=== PATIENT | female | born 1955 | race Caucasian/White ===

== ENCOUNTER 2021-10-28 06:52 | Day surgery (SDC) | payer MEDICARE, OTHER ==
[~2021-10-28] VITALS: Ht 165.1 cm; Wt 122.5 kg
[~2021-10-28 06:52] MED LIST: SODIUM CHLORIDE 0.9% 1,000 ML IV ONE
[2021-10-28] MEDS ORDERED: LIDOCAINE 4% 50 ML SOLUTION TP ONE (06:53)
[2021-10-28] MEDS ORDERED: SODIUM CHLORIDE 0.9% 1,000 ML ONE (06:57)
[2021-10-28 07:14] LABS: COVID AG,FIA SOURCE NASAL SWAB
[2021-10-28] MEDS ORDERED: ARIP15TA27 PO (07:46)
[2021-10-28] MEDS ORDERED: LISI-892 PO (07:46)
[2021-10-28] MEDS ORDERED: OMEP-99 PO (07:46)
[2021-10-28] MEDS ORDERED: GLIM2 PO (07:46)
[2021-10-28] MEDS ORDERED: VENL-193 PO (07:46)
[2021-10-28] MEDS ORDERED: IBUP-2071 PO (07:58)
[2021-10-28] MEDS ORDERED: DOCU-385 PO (07:58)
[2021-10-28] MEDS ORDERED: MIRT30 PO (07:58)
[2021-10-28] MEDS ORDERED: BUDE10.7 IH (07:58)
[2021-10-28] MEDS ORDERED: TRAM50TA4 PO (07:58)
[2021-10-28] MEDS ORDERED: MONT-35 PO (07:58)
[2021-10-28] MEDS ORDERED: ROPI1TAB46 PO (07:58)
[2021-10-28] MEDS ORDERED: LORA10TA7 PO (07:58)
[2021-10-28] MEDS ORDERED: METO25 PO (08:08)
[2021-10-28] MEDS ORDERED: APIX5TAB PO (08:08)
[2021-10-28] MEDS ORDERED: METR250 PO (08:16)
[2021-10-28] MEDS ORDERED: ALBU8HFA IH (08:18)
== END 2021-10-28 08:35 | disposition still patient (30) ==
LOC: SURGERY 06:52
PROVIDERS: ATTEND Internal Medicine Critical Care Medicine
DX: R05.3 Chronic cough (principal); Z53.8 Procedure and treatment not carried out for other reasons; Z79.899 Other long term (current) drug therapy; I48.91 Unspecified atrial fibrillation; Z90.49 Acquired absence of other specified parts of digestive tract; Z88.7 Allergy status to serum and vaccine; Z20.822 Contact with and (suspected) exposure to COVID-19
CPT/HCPCS: 87426; 93005; C9803; J7030

== ENCOUNTER 2021-10-28 08:35 | Emergency (ER) | payer MEDICARE, OTHER ==
[~2021-10-28] VITALS: Ht 165.1 cm; Wt 122.5 kg
[~2021-10-28 08:35] MED LIST changes: +ALBU8HFA IH; +APIX5TAB PO; +ARIP15TA27 PO; +BUDE10.7 IH; +DOCU-385 PO; +GLIM2 PO; +IBUP-2071 PO; +LISI-892 PO; +LORA10TA7 PO; +METO25 PO; +METR250 PO; +MIRT30 PO; +MONT-35 PO; +OMEP-99 PO; +ROPI1TAB46 PO; -SODIUM CHLORIDE 0.9% 1,000 ML IV ONE; +TRAM50TA4 PO; +VENL-193 PO
[2021-10-28 09:09] LABS: BASOPHILS % (AUTO) 1.2 % (0.0-2.0); EOSINOPHILS % (AUTO) 2.2 % (1.0-6.0); HEMATOCRIT 41.1 % (36-46); HEMOGLOBIN 13.2 g/dL (12.0-16.0); LYMPHOCYTES # (AUTO) 1.9 K/uL (1.0-4.8); LYMPHOCYTES % (AUTO) 23.1 % (22.0-44.0); MEAN CORPUSCULAR HEMOGLOBIN 29.3 pg (26.0-34.0); MEAN CORPUSCULAR HGB CONC 32.2 G/dL (31.0-37.0); MEAN CORPUSCULAR VOLUME 91 fL (80-100); MONOCYTES # (AUTO) 0.8 K/uL (0.1-1.0); MONOCYTES % (AUTO) 9.9 % (2.0-9.0); NEUTROPHILS # (AUTO) 5.1 K/uL (1.8-7.7); NEUTROPHILS % (AUTO) 63.6 % (40.0-70.0); PLATELET COUNT (AUTO) 237 K/uL (150-450); RED BLOOD CELL COUNT(AUTO) 4.51 MIL/uL (4.00-5.20); RED CELL DISTRIBUTION WIDTH 14.5 % (11.5-14.5)
[2021-10-28] MEDS ORDERED: SODIUM CHLORIDE 0.9% 1,000 ML IV ONE (09:15)
[2021-10-28 09:20] LABS: CALCIUM, TOTAL 8.8 mg/dL (8.8-10.5); CREATININE 1.18 mg/dL (0.60-1.30); POTASSIUM 3.9 mmol/L (3.5-5.1)
[2021-10-28 09:27] LABS: ALBUMIN 3.2 g/dL (3.4-5.0); BILIRUBIN,TOTAL 0.3 mg/dL (0.1-1.0); TOTAL PROTEIN, SERUM 6.1 g/dL (6.4-8.2)
[2021-10-28 09:39] LABS: D-DIMER 1.52 mg/L FEU (0.00-0.50); PROTHROMBIN TIME 10.4 SEC (9.4-11.6)
[2021-10-28] MEDS ORDERED: SODIUM CHLORIDE 0.9% 100 ML ONE (09:57)
[2021-10-28] MEDS ORDERED: IOHEXOL 350 MG/ML 75 ML VIAL ONE (09:58)
[2021-10-28 11:20] LABS: COVID AG,FIA SOURCE NASAL SWAB
[2021-10-28 11:23] VITALS: BP 123/74
[2021-10-28 11:26] LABS: GLUCOMETER DEV NAME(LOC) ERT.5; GLUCOSE,POINT OF CARE 87 MG/DL (70-110)
[2021-10-28 11:41] LABS: INFLUENZA TYPE A NEGATIVE FOR TYPE A (NEGATIVE); INFLUENZA TYPE B NEGATIVE FOR TYPE B (NEGATIVE)
== END 2021-10-28 11:30 | disposition left against medical advice (07) ==
LOC: EMS 08:35
DX: R00.0 Tachycardia, unspecified (principal); Z20.822 Contact with and (suspected) exposure to COVID-19; F10.20 Alcohol dependence, uncomplicated; F17.210 Nicotine dependence, cigarettes, uncomplicated; F41.9 Anxiety disorder, unspecified; E11.9 Type 2 diabetes mellitus without complications; M79.7 Fibromyalgia; Z86.79 Personal history of other diseases of the circulatory system
CPT/HCPCS: 36415; 71045; 71275; 80053; 82962; 83880; 84484; 85025; 85379; 85610; 85730; 87426; 87804; 93005; 96360; 99285; J7050; Q9967

== ENCOUNTER 2021-11-04 12:18 | Inpatient (IN) | payer MEDICARE, OTHER ==
[~2021-11-04] VITALS: Ht 162.6 cm; Wt 127.5 kg
[2021-11-04 12:36] LABS: GLUCOMETER DEV NAME(LOC) ERT.5; GLUCOSE,POINT OF CARE 147 MG/DL (70-110)
[2021-11-04] MEDS ORDERED: IPRATROPIUM BROMIDE 0.5 MG/2.5 ML NEB SOLUTION NEB ONE (12:45)
[2021-11-04] MEDS ORDERED: SODIUM CHLORIDE 0.9% 1,000 ML IV ONE (12:45)
[2021-11-04] MEDS ORDERED: ALBUTEROL SULFATE 2.5 MG/0.5 ML NEB SOLUTION NEB ONE (12:45)
[2021-11-04] MEDS ORDERED: DILTIAZEM HCL 5 MG/ML 5 ML VIAL IVP ONE ×3 (13:00→18:15)
[2021-11-04 13:12] LABS: BASOPHILS % (AUTO) 1.3 % (0.0-2.0); EOSINOPHILS % (AUTO) 0.5 % (1.0-6.0); HEMATOCRIT 42.9 % (36-46); HEMOGLOBIN 13.9 g/dL (12.0-16.0); LYMPHOCYTES # (AUTO) 1.6 K/uL (1.0-4.8); LYMPHOCYTES % (AUTO) 22.1 % (22.0-44.0); MEAN CORPUSCULAR HEMOGLOBIN 29.3 pg (26.0-34.0); MEAN CORPUSCULAR HGB CONC 32.5 G/dL (31.0-37.0); MEAN CORPUSCULAR VOLUME 90 fL (80-100); MONOCYTES # (AUTO) 0.5 K/uL (0.1-1.0); MONOCYTES % (AUTO) 7.3 % (2.0-9.0); NEUTROPHILS # (AUTO) 5.1 K/uL (1.8-7.7); NEUTROPHILS % (AUTO) 68.8 % (40.0-70.0); PLATELET COUNT (AUTO) 251 K/uL (150-450); RED BLOOD CELL COUNT(AUTO) 4.76 MIL/uL (4.00-5.20); RED CELL DISTRIBUTION WIDTH 14.5 % (11.5-14.5)
[2021-11-04 13:23] LABS: ANION GAP 15 mmol/L (8-16); CARBON DIOXIDE 19 mmol/L (22-29); CHLORIDE 107 mmol/L (98-107); CREATININE 0.84 mg/dL (0.60-1.30); GLUCOSE,RANDOM 168 mg/dL (70-110); POTASSIUM 3.6 mmol/L (3.5-5.1); SODIUM SERUM 141 mmol/L (136-145); UREA NITROGEN, BLOOD 6 mg/dL (7-18)
[2021-11-04 13:24] LABS: GLOMERULAR FILTR. RATE CALC > 60 mL/min (>60)
[2021-11-04 13:26] LABS: COVID AG,FIA SOURCE NASOPHARYNGEAL
[2021-11-04 13:28] LABS: ALANINE AMINOTRANSFERASE 29 U/L (12-78); ALBUMIN 3.1 g/dL (3.4-5.0); ALKALINE PHOSPHATASE 108 U/L (46-116); ASPARTATE AMINOTRANSFERASE 19 U/L (15-37); BILIRUBIN,TOTAL 0.3 mg/dL (0.1-1.0); CREATINE KINASE, TOTAL ONLY 42 U/L (26-192); TOTAL PROTEIN, SERUM 6.3 g/dL (6.4-8.2)
[2021-11-04 13:43] LABS: B-TYPE NATRIURETIC PEPTIDE 707 pg/mL (0-100)
[2021-11-04 13:55] LABS: THYROID STIMULATING HORMONE 1.31 uIU/mL (0.36-3.74)
[2021-11-04 13:57] LABS: INFLUENZA TYPE A NEGATIVE FOR TYPE A (NEGATIVE); INFLUENZA TYPE B NEGATIVE FOR TYPE B (NEGATIVE)
[2021-11-04] MEDS ORDERED: ACETAMINOPHEN 325 MG TABLET PO PRN (15:00)
[2021-11-04] MEDS ORDERED: ONDANSETRON HCL 4 MG/2 ML VIAL IVP PRN (15:00)
[2021-11-04] MEDS ORDERED: 0.9% SODIUM CHLORIDE 10 ML SYRINGE IVP PRN (15:00)
[2021-11-04 17:46] VITALS: BP 122/74
[2021-11-04] MEDS ORDERED: PNEUMOCOCCAL VACCINE POLYVALENT 0.5 ML VIAL [PPSV23] IM. ONE (18:30)
[2021-11-04 19:57] VITALS: BP 123/84
[2021-11-04] MEDS: DILTIAZEM HCL 125 MG in DEXTROSE 5%-WATER 100 ML IV SCH (20:21)
[2021-11-04] MEDS: APIXABAN 5 MG TABLET PO SCH (20:22)
[2021-11-04] MEDS: ROPINIRole HCL 1 MG TABLET PO SCH (20:22)
[2021-11-04] MEDS: TraMADol HCL 50 MG TABLET PO PRN (20:22)
[2021-11-04] MEDS: MetroNIDAZOLE 250 MG TABLET PO SCH (20:22)
[2021-11-04] MEDS ORDERED: [UNRECOGNIZED DRUG - OTHER] IH SCH (21:00)
[2021-11-04 23:03] VITALS: BP 117/71
[2021-11-05] MEDS: TraMADol HCL 50 MG TABLET PO PRN ×3 (05:32→21:44)
[2021-11-05 05:34] VITALS: BP 115/57
[2021-11-05 05:57] LABS: GLUCOMETER DEV NAME(LOC) 5S.1B; GLUCOSE,POINT OF CARE 139 MG/DL (70-110)
[2021-11-05 06:06] LABS: BASOPHILS % (AUTO) 1.2 % (0.0-2.0); EOSINOPHILS % (AUTO) 1.8 % (1.0-6.0); HEMATOCRIT 40.2 % (36-46); HEMOGLOBIN 13.1 g/dL (12.0-16.0); LYMPHOCYTES # (AUTO) 2.3 K/uL (1.0-4.8); LYMPHOCYTES % (AUTO) 27.9 % (22.0-44.0); MEAN CORPUSCULAR HEMOGLOBIN 29.3 pg (26.0-34.0); MEAN CORPUSCULAR HGB CONC 32.5 G/dL (31.0-37.0); MEAN CORPUSCULAR VOLUME 90 fL (80-100); MONOCYTES # (AUTO) 0.7 K/uL (0.1-1.0); MONOCYTES % (AUTO) 8.5 % (2.0-9.0); NEUTROPHILS # (AUTO) 5.1 K/uL (1.8-7.7); NEUTROPHILS % (AUTO) 60.6 % (40.0-70.0); PLATELET COUNT (AUTO) 251 K/uL (150-450); RED BLOOD CELL COUNT(AUTO) 4.47 MIL/uL (4.00-5.20); RED CELL DISTRIBUTION WIDTH 14.8 % (11.5-14.5)
[2021-11-05 06:21] LABS: ALANINE AMINOTRANSFERASE 24 U/L (12-78); ALBUMIN 2.9 g/dL (3.4-5.0); ALKALINE PHOSPHATASE 101 U/L (46-116); ANION GAP 10 mmol/L (8-16); ASPARTATE AMINOTRANSFERASE 24 U/L (15-37); BILIRUBIN,TOTAL 0.4 mg/dL (0.1-1.0); CALCIUM, TOTAL 8.7 mg/dL (8.8-10.5); CARBON DIOXIDE 21 mmol/L (22-29); CHLORIDE 106 mmol/L (98-107); CREATININE 0.81 mg/dL (0.60-1.30); GLUCOSE,RANDOM 144 mg/dL (70-110); POTASSIUM 4.1 mmol/L (3.5-5.1); SODIUM SERUM 137 mmol/L (136-145); TOTAL PROTEIN, SERUM 6.2 g/dL (6.4-8.2); UREA NITROGEN, BLOOD 7 mg/dL (7-18)
[2021-11-05 06:25] LABS: GLOMERULAR FILTR. RATE CALC > 60 mL/min (>60)
[2021-11-05 08:27] VITALS: BP 146/97
[2021-11-05] MEDS: ARIPiprazole 15 MG TABLET PO SCH (09:20)
[2021-11-05] MEDS: VENLAFAXINE HCL 50 MG TABLET PO SCH (09:20)
[2021-11-05] MEDS: GLIMEPIRIDE 2 MG TABLET PO SCH (09:20)
[2021-11-05] MEDS: OMEPRAZOLE 20 MG CAPSULE PO SCH (09:21)
[2021-11-05] MEDS: MONTELUKAST SODIUM 10 MG TABLET PO SCH (09:21)
[2021-11-05] MEDS: LORATADINE 10 MG TABLET PO SCH (09:21)
[2021-11-05] MEDS: MIRTAZAPINE 30 MG TABLET PO SCH (09:21)
[2021-11-05] MEDS: MetroNIDAZOLE 250 MG TABLET PO SCH ×3 (09:21→20:45)
[2021-11-05] MEDS: ROPINIRole HCL 1 MG TABLET PO SCH ×2 (09:21→20:44)
[2021-11-05] MEDS: DOCUSATE SODIUM 100 MG CAPSULE PO SCH (09:23)
[2021-11-05] MEDS: APIXABAN 5 MG TABLET PO SCH ×2 (09:28→20:45)
[2021-11-05] MEDS: DILTIAZEM HCL 125 MG in DEXTROSE 5%-WATER 100 ML IV SCH ×2 (09:29→21:36)
[2021-11-05] MEDS: METOPROLOL TARTRATE 25 MG TABLET PO SCH ×2 (10:54→20:46)
[2021-11-05 11:01] VITALS: BP 145/95
[2021-11-05] MEDS ORDERED: FUROSEMIDE 20 MG/2 ML VIAL IVP ONE (11:30)
[2021-11-05 12:16] LABS: GLUCOMETER DEV NAME(LOC) 5S.2B; GLUCOSE,POINT OF CARE 141 MG/DL (70-110)
[2021-11-05] MEDS ORDERED: MethylPREDNISolone SOD SUCC 125 MG/2 ML VIAL IVP ONE (13:00)
[2021-11-05] MEDS ORDERED: ALBUTEROL SULFATE 2.5 MG/0.5 ML NEB SOLUTION NEB ONE (13:00)
[2021-11-05 16:44] VITALS: BP 98/67
[2021-11-05 18:07] LABS: GLUCOMETER DEV NAME(LOC) 5S.1B; GLUCOSE,POINT OF CARE 162 MG/DL (70-110)
[2021-11-05 20:35] VITALS: BP 132/59
[2021-11-05] MEDS: HydrOXYzine HCL 25 MG TABLET PO PRN (20:46)
[2021-11-06 00:22] VITALS: BP 119/60
[2021-11-06] MEDS ORDERED: MELATONIN 3 MG TABLET PO ONE (00:30)
[2021-11-06 04:39] VITALS: BP 98/50
[2021-11-06] MEDS ORDERED: MIDAZOLAM HCL 2 MG/2 ML VIAL ONE (07:25)
[2021-11-06] MEDS ORDERED: FentaNYL CITRATE PF 100 MCG/2 ML VIAL ONE (07:25)
[2021-11-06] MEDS ORDERED: LIDOCAINE 2% VISCOUS 15 ML SOLUTION UDCUP ONE (07:26)
[2021-11-06 07:42] VITALS: BP 138/90
[2021-11-06] MEDS ORDERED: PHENYLEPHRINE HCL 10 MG/ML 5 ML VIAL IVP ONE (08:00)
[2021-11-06] MEDS ORDERED: SODIUM CHLORIDE 0.9% 1,000 ML ONE (08:00)
[2021-11-06] MEDS ORDERED: SODIUM CHLORIDE 0.9% IV ONE (08:15)
[2021-11-06] MEDS ORDERED: PHENYLEPHRINE HCL IV ONE (08:15)
[2021-11-06] MEDS ORDERED: FUROSEMIDE 40 MG/4 ML VIAL ONE (08:25)
[2021-11-06 08:51] LABS: GLUCOMETER DEV NAME(LOC) 5S.1B; GLUCOSE,POINT OF CARE 181 MG/DL (70-110)
[2021-11-06] MEDS: OMEPRAZOLE 20 MG CAPSULE PO SCH (10:03)
[2021-11-06] MEDS: ARIPiprazole 15 MG TABLET PO SCH (10:04)
[2021-11-06] MEDS: GLIMEPIRIDE 2 MG TABLET PO SCH (10:04)
[2021-11-06] MEDS: APIXABAN 5 MG TABLET PO SCH ×2 (10:04→20:13)
[2021-11-06] MEDS: VENLAFAXINE HCL 50 MG TABLET PO SCH (10:04)
[2021-11-06] MEDS: ROPINIRole HCL 1 MG TABLET PO SCH ×2 (10:04→20:13)
[2021-11-06] MEDS: DOCUSATE SODIUM 100 MG CAPSULE PO SCH (10:05)
[2021-11-06] MEDS: MONTELUKAST SODIUM 10 MG TABLET PO SCH (10:05)
[2021-11-06] MEDS: METOPROLOL TARTRATE 25 MG TABLET PO SCH ×2 (10:05→20:13)
[2021-11-06] MEDS: FUROSEMIDE 20 MG/2 ML VIAL IVP SCH (10:05)
[2021-11-06] MEDS: MIRTAZAPINE 30 MG TABLET PO SCH (10:05)
[2021-11-06] MEDS: MetroNIDAZOLE 250 MG TABLET PO SCH ×3 (10:05→20:13)
[2021-11-06] MEDS: LORATADINE 10 MG TABLET PO SCH (10:05)
[2021-11-06 11:17] VITALS: BP 97/67
[2021-11-06 12:31] LABS: GLUCOMETER DEV NAME(LOC) 5S.1B; GLUCOSE,POINT OF CARE 156 MG/DL (70-110)
[2021-11-06 16:00] VITALS: BP 115/74
[2021-11-06] MEDS ORDERED: OMEP20CA12 PO (16:01)
[2021-11-06] MEDS ORDERED: NICO-803 TD (16:01)
[2021-11-06] MEDS ORDERED: CYCL10TA16 PO (16:01)
[2021-11-06] MEDS ORDERED: FLUT16H NASAL (16:01)
[2021-11-06] MEDS ORDERED: VENL-68 PO (16:01)
[2021-11-06] MEDS ORDERED: LOPE-232 PO (16:01)
[2021-11-06] MEDS ORDERED: METR500 PO (16:03)
[2021-11-06 19:22] VITALS: BP 116/86
[2021-11-06] MEDS: TraMADol HCL 50 MG TABLET PO PRN (20:14)
[2021-11-06 22:46] LABS: GLUCOMETER DEV NAME(LOC) 5S.2B; GLUCOSE,POINT OF CARE 160 MG/DL (70-110)
[2021-11-07] VITALS (7 sets, daily range): BP systolic 101–113; BP diastolic 54–83
[2021-11-07] MEDS: HydrOXYzine HCL 25 MG TABLET PO PRN ×3 (03:07→22:19)
[2021-11-07 06:05] LABS: BASOPHILS % (AUTO) 0.5 % (0.0-2.0); EOSINOPHILS % (AUTO) 0 % (1.0-6.0); HEMATOCRIT 42.6 % (36-46); HEMOGLOBIN 13.7 g/dL (12.0-16.0); LYMPHOCYTES % (AUTO) 15.2 % (22.0-44.0); MEAN CORPUSCULAR HEMOGLOBIN 29.2 pg (26.0-34.0); MEAN CORPUSCULAR HGB CONC 32.3 G/dL (31.0-37.0); MEAN CORPUSCULAR VOLUME 91 fL (80-100); MONOCYTES % (AUTO) 7.8 % (2.0-9.0); NEUTROPHILS # (AUTO) 10.3 K/uL (1.8-7.7); NEUTROPHILS % (AUTO) 76.5 % (40.0-70.0); PLATELET COUNT (AUTO) 229 K/uL (150-450)
[2021-11-07 06:11] LABS: GLUCOMETER DEV NAME(LOC) 5S.1B; GLUCOSE,POINT OF CARE 208 MG/DL (70-110)
[2021-11-07] MEDS ORDERED: ALBUTEROL SULFATE 2.5 MG/0.5 ML NEB SOLUTION NEB ONE (08:00)
[2021-11-07 08:31] LABS: CALCIUM, TOTAL 8.8 mg/dL (8.8-10.5); CREATININE 2.11 mg/dL (0.60-1.30); POTASSIUM 4.8 mmol/L (3.5-5.1)
[2021-11-07] MEDS: ROPINIRole HCL 1 MG TABLET PO SCH ×2 (08:36→20:05)
[2021-11-07] MEDS: ARIPiprazole 15 MG TABLET PO SCH (08:36)
[2021-11-07] MEDS: DOCUSATE SODIUM 100 MG CAPSULE PO SCH ×2 (08:37→20:04)
[2021-11-07] MEDS: MONTELUKAST SODIUM 10 MG TABLET PO SCH (08:37)
[2021-11-07] MEDS: VENLAFAXINE HCL 150 MG ER CAPSULE PO SCH (08:37)
[2021-11-07] MEDS: OMEPRAZOLE 20 MG CAPSULE PO SCH (08:37)
[2021-11-07] MEDS: LORATADINE 10 MG TABLET PO SCH (08:37)
[2021-11-07] MEDS: GLIMEPIRIDE 2 MG TABLET PO SCH (08:37)
[2021-11-07] MEDS: APIXABAN 5 MG TABLET PO SCH ×2 (08:37→20:03)
[2021-11-07] MEDS: METOPROLOL TARTRATE 25 MG TABLET PO SCH ×2 (08:38→20:05)
[2021-11-07] MEDS: FUROSEMIDE 20 MG/2 ML VIAL IVP SCH (08:38)
[2021-11-07] MEDS: MetroNIDAZOLE 250 MG TABLET PO SCH ×3 (08:42→20:05)
[2021-11-07] MEDS: TraMADol HCL 50 MG TABLET PO PRN ×2 (13:23→21:27)
[2021-11-07] MEDS: MIRTAZAPINE 30 MG TABLET PO SCH (20:05)
[2021-11-08 00:36] LABS: GLUCOMETER DEV NAME(LOC) 5S.2B; GLUCOSE,POINT OF CARE 152 MG/DL (70-110)
[2021-11-08 00:36] LABS: GLUCOMETER DEV NAME(LOC) 5S.2B; GLUCOSE,POINT OF CARE 135 MG/DL (70-110)
[2021-11-08 00:36] LABS: GLUCOMETER DEV NAME(LOC) 5S.2B; GLUCOSE,POINT OF CARE 141 MG/DL (70-110)
[2021-11-08 00:36] LABS: GLUCOMETER DEV NAME(LOC) 5S.2B; GLUCOSE,POINT OF CARE 192 MG/DL (70-110)
[2021-11-08] MEDS: OxyCODONE HCL/ACETAMINOPHEN 5-325 MG TABLET PO PRN ×2 (02:59→14:33)
[2021-11-08 05:34] VITALS: BP 103/63
[2021-11-08 07:14] LABS: BASOPHILS % (AUTO) 0.8 % (0.0-2.0); EOSINOPHILS % (AUTO) 0.4 % (1.0-6.0); HEMATOCRIT 42.5 % (36-46); HEMOGLOBIN 13.8 g/dL (12.0-16.0); LYMPHOCYTES % (AUTO) 19.5 % (22.0-44.0); MEAN CORPUSCULAR HEMOGLOBIN 29.4 pg (26.0-34.0); MEAN CORPUSCULAR HGB CONC 32.6 G/dL (31.0-37.0); MEAN CORPUSCULAR VOLUME 90 fL (80-100); MONOCYTES % (AUTO) 9.6 % (2.0-9.0); NEUTROPHILS # (AUTO) 7.1 K/uL (1.8-7.7); NEUTROPHILS % (AUTO) 69.7 % (40.0-70.0); PLATELET COUNT (AUTO) 217 K/uL (150-450); RED BLOOD CELL COUNT(AUTO) 4.71 MIL/uL (4.00-5.20); RED CELL DISTRIBUTION WIDTH 15.2 % (11.5-14.5)
[2021-11-08 07:39] LABS: ALBUMIN 3.2 g/dL (3.4-5.0); BILIRUBIN,TOTAL 0.4 mg/dL (0.1-1.0); CALCIUM, TOTAL 9.1 mg/dL (8.8-10.5); CREATININE 1.73 mg/dL (0.60-1.30); MAGNESIUM 1.9 mg/dL (1.80-2.40); POTASSIUM 4.4 mmol/L (3.5-5.1); TOTAL PROTEIN, SERUM 6.2 g/dL (6.4-8.2)
[2021-11-08 07:49] VITALS: BP 101/69
[2021-11-08] MEDS: MONTELUKAST SODIUM 10 MG TABLET PO SCH (08:07)
[2021-11-08] MEDS: ROPINIRole HCL 1 MG TABLET PO SCH ×2 (08:07→20:39)
[2021-11-08] MEDS: MetroNIDAZOLE 250 MG TABLET PO SCH ×3 (08:07→20:39)
[2021-11-08] MEDS: GLIMEPIRIDE 2 MG TABLET PO SCH (08:07)
[2021-11-08] MEDS: APIXABAN 5 MG TABLET PO SCH ×2 (08:08→20:39)
[2021-11-08] MEDS: VENLAFAXINE HCL 150 MG ER CAPSULE PO SCH (08:08)
[2021-11-08] MEDS: OMEPRAZOLE 20 MG CAPSULE PO SCH (08:08)
[2021-11-08] MEDS: LORATADINE 10 MG TABLET PO SCH (08:09)
[2021-11-08] MEDS: DOCUSATE SODIUM 100 MG CAPSULE PO SCH ×2 (08:09→20:39)
[2021-11-08] MEDS: FUROSEMIDE 20 MG/2 ML VIAL IVP SCH (08:09)
[2021-11-08] MEDS: TraMADol HCL 50 MG TABLET PO PRN ×2 (08:09→20:41)
[2021-11-08 08:11] LABS: GLUCOMETER DEV NAME(LOC) 5S.2B; GLUCOSE,POINT OF CARE 119 MG/DL (70-110)
[2021-11-08] MEDS: METOPROLOL TARTRATE 25 MG TABLET PO SCH ×3 (08:12→17:51)
[2021-11-08] MEDS: ARIPiprazole 15 MG TABLET PO SCH (08:14)
[2021-11-08] MEDS: DIGOXIN 250 MCG/ML 2 ML AMP IVP SCH (10:49)
[2021-11-08 11:26] VITALS: BP 96/56
[2021-11-08] MEDS: HydrOXYzine HCL 25 MG TABLET PO PRN ×2 (12:32→20:39)
[2021-11-08] MEDS ORDERED: DIGOXIN 250 MCG/ML 2 ML AMP IVP ONE (14:15)
[2021-11-08 16:30] VITALS: BP 107/77
[2021-11-08 20:00] VITALS: BP 123/84
[2021-11-08 20:16] LABS: GLUCOMETER DEV NAME(LOC) 5S.2B; GLUCOSE,POINT OF CARE 146 MG/DL (70-110)
[2021-11-08 20:16] LABS: GLUCOMETER DEV NAME(LOC) 5N.3; GLUCOSE,POINT OF CARE 133 MG/DL (70-110)
[2021-11-08] MEDS: MIRTAZAPINE 30 MG TABLET PO SCH (20:39)
[2021-11-08] MEDS ORDERED: METOPROLOL SUCCINATE 50 MG ER TABLET PO ONE (21:15)
[2021-11-08 21:26] LABS: GLUCOMETER DEV NAME(LOC) 5N.3; GLUCOSE,POINT OF CARE 115 MG/DL (70-110)
[2021-11-09] VITALS (7 sets, daily range): BP systolic 117–143; BP diastolic 59–98
[2021-11-09] MEDS: OxyCODONE HCL/ACETAMINOPHEN 5-325 MG TABLET PO PRN ×3 (00:18→20:35)
[2021-11-09] MEDS: TraMADol HCL 50 MG TABLET PO PRN ×2 (05:18→18:00)
[2021-11-09] MEDS: METOPROLOL TARTRATE 25 MG TABLET PO SCH ×5 (05:18→23:42)
[2021-11-09 06:01] LABS: EOSINOPHILS % (AUTO) 1.3 % (1.0-6.0); HEMATOCRIT 40.8 % (36-46); HEMOGLOBIN 13.5 g/dL (12.0-16.0); LYMPHOCYTES % (AUTO) 21.9 % (22.0-44.0); MEAN CORPUSCULAR HEMOGLOBIN 29.7 pg (26.0-34.0); MEAN CORPUSCULAR HGB CONC 33.2 G/dL (31.0-37.0); MEAN CORPUSCULAR VOLUME 89 fL (80-100); MONOCYTES # (AUTO) 0.8 K/uL (0.1-1.0); MONOCYTES % (AUTO) 9.3 % (2.0-9.0); NEUTROPHILS % (AUTO) 66.5 % (40.0-70.0); PLATELET COUNT (AUTO) 213 K/uL (150-450); RED BLOOD CELL COUNT(AUTO) 4.56 MIL/uL (4.00-5.20); RED CELL DISTRIBUTION WIDTH 14.8 % (11.5-14.5)
[2021-11-09 06:52] LABS: BILIRUBIN,TOTAL 0.5 mg/dL (0.1-1.0); CALCIUM, TOTAL 8.8 mg/dL (8.8-10.5); CREATININE 1.44 mg/dL (0.60-1.30); MAGNESIUM 1.9 mg/dL (1.80-2.40); POTASSIUM 4.3 mmol/L (3.5-5.1); TOTAL PROTEIN, SERUM 5.9 g/dL (6.4-8.2)
[2021-11-09] MEDS: VENLAFAXINE HCL 150 MG ER CAPSULE PO SCH (09:30)
[2021-11-09] MEDS: ROPINIRole HCL 1 MG TABLET PO SCH ×2 (09:30→20:35)
[2021-11-09] MEDS: ARIPiprazole 15 MG TABLET PO SCH (09:30)
[2021-11-09] MEDS: DIGOXIN 250 MCG/ML 2 ML AMP IVP SCH (09:30)
[2021-11-09] MEDS: MONTELUKAST SODIUM 10 MG TABLET PO SCH (09:30)
[2021-11-09] MEDS: OMEPRAZOLE 20 MG CAPSULE PO SCH (09:30)
[2021-11-09] MEDS: GLIMEPIRIDE 2 MG TABLET PO SCH (09:30)
[2021-11-09] MEDS: FUROSEMIDE 20 MG/2 ML VIAL IVP SCH (09:30)
[2021-11-09] MEDS: MetroNIDAZOLE 250 MG TABLET PO SCH ×3 (09:30→20:34)
[2021-11-09] MEDS: LORATADINE 10 MG TABLET PO SCH (09:31)
[2021-11-09] MEDS: DOCUSATE SODIUM 100 MG CAPSULE PO SCH ×2 (09:31→20:34)
[2021-11-09] MEDS ORDERED: HEPARIN SODIUM,PORCINE 5,000 UNITS/ML VIAL IVP PRN ×2 (13:45)
[2021-11-09] MEDS ORDERED: HEPARIN SODIUM 25000 UNITS/D5W 250 ML IV PRN (13:45)
[2021-11-09 15:15] LABS: BASOPHILS % (AUTO) 0.7 % (0.0-2.0); EOSINOPHILS % (AUTO) 1.1 % (1.0-6.0); HEMATOCRIT 44.5 % (36-46); HEMOGLOBIN 14.4 g/dL (12.0-16.0); LYMPHOCYTES # (AUTO) 1.8 K/uL (1.0-4.8); MEAN CORPUSCULAR HEMOGLOBIN 29.1 pg (26.0-34.0); MEAN CORPUSCULAR HGB CONC 32.3 G/dL (31.0-37.0); MEAN CORPUSCULAR VOLUME 90 fL (80-100); MONOCYTES % (AUTO) 11.6 % (2.0-9.0); NEUTROPHILS # (AUTO) 5.4 K/uL (1.8-7.7); NEUTROPHILS % (AUTO) 64.6 % (40.0-70.0); PLATELET COUNT (AUTO) 228 K/uL (150-450); RED BLOOD CELL COUNT(AUTO) 4.94 MIL/uL (4.00-5.20); RED CELL DISTRIBUTION WIDTH 14.6 % (11.5-14.5)
[2021-11-09 15:21] LABS: INR 1.2 (0.9-1.1); PROTHROMBIN TIME 12.7 SEC (9.4-11.6)
[2021-11-09 20:21] LABS: GLUCOMETER DEV NAME(LOC) 5N.3; GLUCOSE,POINT OF CARE 141 MG/DL (70-110)
[2021-11-09 20:21] LABS: GLUCOMETER DEV NAME(LOC) 5S.2B; GLUCOSE,POINT OF CARE 123 MG/DL (70-110)
[2021-11-09 20:21] LABS: GLUCOMETER DEV NAME(LOC) 5S.1B; GLUCOSE,POINT OF CARE 131 MG/DL (70-110)
[2021-11-09] MEDS: MIRTAZAPINE 30 MG TABLET PO SCH (20:35)
[2021-11-10] VITALS (14 sets, daily range): BP systolic 109–141; BP diastolic 60–101
[2021-11-10] MEDS: TraMADol HCL 50 MG TABLET PO PRN ×2 (02:00→15:47)
[2021-11-10] MEDS: HydrOXYzine HCL 25 MG TABLET PO PRN ×2 (02:00→17:12)
[2021-11-10] MEDS: OxyCODONE HCL/ACETAMINOPHEN 5-325 MG TABLET PO PRN ×2 (04:42→19:41)
[2021-11-10 05:59] LABS: BASOPHILS % (AUTO) 0.7 % (0.0-2.0); EOSINOPHILS % (AUTO) 1.1 % (1.0-6.0); HEMATOCRIT 42.6 % (36-46); HEMOGLOBIN 14.2 g/dL (12.0-16.0); LYMPHOCYTES # (AUTO) 1.6 K/uL (1.0-4.8); LYMPHOCYTES % (AUTO) 16.5 % (22.0-44.0); MEAN CORPUSCULAR HEMOGLOBIN 29.4 pg (26.0-34.0); MEAN CORPUSCULAR HGB CONC 33.3 G/dL (31.0-37.0); MEAN CORPUSCULAR VOLUME 88 fL (80-100); MONOCYTES # (AUTO) 0.8 K/uL (0.1-1.0); MONOCYTES % (AUTO) 8.9 % (2.0-9.0); NEUTROPHILS # (AUTO) 6.9 K/uL (1.8-7.7); NEUTROPHILS % (AUTO) 72.8 % (40.0-70.0); PLATELET COUNT (AUTO) 220 K/uL (150-450); RED BLOOD CELL COUNT(AUTO) 4.82 MIL/uL (4.00-5.20); RED CELL DISTRIBUTION WIDTH 14.8 % (11.5-14.5)
[2021-11-10] MEDS: METOPROLOL TARTRATE 25 MG TABLET PO SCH ×3 (06:11→19:41)
[2021-11-10] MEDS ORDERED: VERAPAMIL HCL 2.5 MG/ML 2 ML VIAL ONE (07:05)
[2021-11-10] MEDS ORDERED: LIDOCAINE/PF 1% 30 ML VIAL ONE (07:06)
[2021-11-10] MEDS ORDERED: IOHEXOL 300 MG/ML 50 ML VIAL ONE (07:06)
[2021-11-10] MEDS ORDERED: HEPARIN SODIUM 1000 UNITS/NS 1,000 ML ONE (07:06)
[2021-11-10] MEDS ORDERED: NITROGLYCERIN 50 MG/D5% WATER 250 ML ONE (07:06)
[2021-11-10] MEDS ORDERED: SODIUM BICARBONATE 50 MEQ/50 ML VIAL ONE (07:06)
[2021-11-10 08:04] LABS: CALCIUM, TOTAL 9.3 mg/dL (8.8-10.5); CREATININE 1.21 mg/dL (0.60-1.30); POTASSIUM 4.2 mmol/L (3.5-5.1)
[2021-11-10] MEDS: ROPINIRole HCL 1 MG TABLET PO SCH ×2 (08:51→20:04)
[2021-11-10] MEDS: OMEPRAZOLE 20 MG CAPSULE PO SCH (08:51)
[2021-11-10] MEDS: LORATADINE 10 MG TABLET PO SCH (08:51)
[2021-11-10] MEDS: DIGOXIN 125 MCG TABLET PO SCH (08:51)
[2021-11-10] MEDS: ARIPiprazole 15 MG TABLET PO SCH (08:51)
[2021-11-10] MEDS: MetroNIDAZOLE 250 MG TABLET PO SCH ×3 (08:51→20:04)
[2021-11-10] MEDS: MONTELUKAST SODIUM 10 MG TABLET PO SCH (08:51)
[2021-11-10] MEDS: VENLAFAXINE HCL 150 MG ER CAPSULE PO SCH (08:51)
[2021-11-10] MEDS: GLIMEPIRIDE 2 MG TABLET PO SCH (08:51)
[2021-11-10] MEDS: FUROSEMIDE 20 MG/2 ML VIAL IVP SCH (08:51)
[2021-11-10] MEDS: DOCUSATE SODIUM 100 MG CAPSULE PO SCH ×2 (08:53→20:04)
[2021-11-10] MEDS ORDERED: HEPARIN SODIUM 1000 UNITS/NS 1,000 ML IARTER ONE (09:30)
[2021-11-10] MEDS ORDERED: FentaNYL CITRATE PF 100 MCG/2 ML VIAL ONE (09:30)
[2021-11-10] MEDS ORDERED: MIDAZOLAM HCL 2 MG/2 ML VIAL ONE (09:30)
[2021-11-10] MEDS ORDERED: VERAPAMIL HCL 2.5 MG/ML 2 ML VIAL IARTER ONE (09:30)
[2021-11-10] MEDS ORDERED: SODIUM CHLORIDE 0.9% 500 ML IV ONE (09:30)
[2021-11-10] MEDS ORDERED: IOHEXOL 300 MG/ML 50 ML VIAL ICOR ONE (09:30)
[2021-11-10] MEDS ORDERED: HEPARIN SODIUM,PORCINE 1,000 UNITS/ML 10 ML VIAL IARTER ONE (09:30)
[2021-11-10] MEDS ORDERED: LIDOCAINE 1% 30 ML/SOD BICARB 8.4% 4 ML SQ ONE (09:30)
[2021-11-10] MEDS ORDERED: NITROGLYCERIN/D5W 50 MG/250 ML IV BOTTLE IARTER ONE (09:30)
[2021-11-10] MEDS ORDERED: MIDAZOLAM HCL 2 MG/2 ML VIAL IVP ONE ×3 (09:45→10:15)
[2021-11-10] MEDS ORDERED: FentaNYL CITRATE PF 100 MCG/2 ML VIAL IVP ONE ×3 (09:45→10:15)
[2021-11-10] MEDS ORDERED: INSULIN LISPRO 100 UNITS/ML SQ PRN (18:45)
[2021-11-10] MEDS ORDERED: DEXTROSE 50%-WATER 25 GM/50 ML SYRINGE IVP PRN (18:45)
[2021-11-10] MEDS: MIRTAZAPINE 30 MG TABLET PO SCH (20:04)
[2021-11-10] MEDS: APIXABAN 5 MG TABLET PO SCH (20:04)
[2021-11-11] MEDS: TraMADol HCL 50 MG TABLET PO PRN ×2 (00:15→08:26)
[2021-11-11] MEDS: HydrOXYzine HCL 25 MG TABLET PO PRN ×2 (03:55→12:05)
[2021-11-11] MEDS: OxyCODONE HCL/ACETAMINOPHEN 5-325 MG TABLET PO PRN ×2 (03:56→12:05)
[2021-11-11 04:57] VITALS: BP 126/58
[2021-11-11 05:45] LABS: BASOPHILS % (AUTO) 1.3 % (0.0-2.0); EOSINOPHILS % (AUTO) 2.5 % (1.0-6.0); HEMATOCRIT 39.2 % (36-46); LYMPHOCYTES # (AUTO) 1.8 K/uL (1.0-4.8); LYMPHOCYTES % (AUTO) 24.6 % (22.0-44.0); MEAN CORPUSCULAR HEMOGLOBIN 29.4 pg (26.0-34.0); MEAN CORPUSCULAR HGB CONC 33.2 G/dL (31.0-37.0); MEAN CORPUSCULAR VOLUME 89 fL (80-100); MONOCYTES # (AUTO) 0.8 K/uL (0.1-1.0); MONOCYTES % (AUTO) 11.5 % (2.0-9.0); NEUTROPHILS # (AUTO) 4.4 K/uL (1.8-7.7); NEUTROPHILS % (AUTO) 60.1 % (40.0-70.0); PLATELET COUNT (AUTO) 211 K/uL (150-450); RED BLOOD CELL COUNT(AUTO) 4.43 MIL/uL (4.00-5.20); RED CELL DISTRIBUTION WIDTH 14.6 % (11.5-14.5)
[2021-11-11] MEDS: METOPROLOL TARTRATE 25 MG TABLET PO SCH ×3 (05:56→12:05)
[2021-11-11 05:57] LABS: GLUCOMETER DEV NAME(LOC) 5S.1B; GLUCOSE,POINT OF CARE 128 MG/DL (70-110)
[2021-11-11 05:59] LABS: ALBUMIN 2.8 g/dL (3.4-5.0); BILIRUBIN,TOTAL 0.5 mg/dL (0.1-1.0); CALCIUM, TOTAL 8.6 mg/dL (8.8-10.5); POTASSIUM 3.6 mmol/L (3.5-5.1); TOTAL PROTEIN, SERUM 5.6 g/dL (6.4-8.2)
[2021-11-11 06:04] LABS: HEMOGLOBIN A1C 6.5 % (3.8-5.6)
[2021-11-11 07:40] VITALS: BP 139/79
[2021-11-11] MEDS: OMEPRAZOLE 20 MG CAPSULE PO SCH (08:25)
[2021-11-11] MEDS: MONTELUKAST SODIUM 10 MG TABLET PO SCH (08:25)
[2021-11-11] MEDS: MetroNIDAZOLE 250 MG TABLET PO SCH (08:25)
[2021-11-11] MEDS: LORATADINE 10 MG TABLET PO SCH (08:26)
[2021-11-11] MEDS: ROPINIRole HCL 1 MG TABLET PO SCH (08:26)
[2021-11-11] MEDS: DOCUSATE SODIUM 100 MG CAPSULE PO SCH (08:26)
[2021-11-11] MEDS: ARIPiprazole 15 MG TABLET PO SCH (08:27)
[2021-11-11] MEDS: VENLAFAXINE HCL 150 MG ER CAPSULE PO SCH (08:27)
[2021-11-11] MEDS: GLIMEPIRIDE 2 MG TABLET PO SCH (08:27)
[2021-11-11] MEDS: DIGOXIN 125 MCG TABLET PO SCH (08:27)
[2021-11-11] MEDS: FUROSEMIDE 20 MG/2 ML VIAL IVP SCH (08:27)
[2021-11-11] MEDS: APIXABAN 5 MG TABLET PO SCH (08:29)
[2021-11-11 11:25] VITALS: BP 125/88
[2021-11-11] MEDS ORDERED: METO25 PO (15:10)
[2021-11-12 06:27] LABS: GLUCOMETER DEV NAME(LOC) 5N.1C; GLUCOSE,POINT OF CARE 150 MG/DL (70-110)
[2021-11-12 17:36] LABS: GLUCOMETER DEV NAME(LOC) 5S.2B; GLUCOSE,POINT OF CARE 133 MG/DL (70-110)
[2021-11-12 17:36] LABS: GLUCOMETER DEV NAME(LOC) 5S.2B; GLUCOSE,POINT OF CARE 103 MG/DL (70-110)
[2021-11-12 17:36] LABS: GLUCOMETER DEV NAME(LOC) 5S.2B; GLUCOSE,POINT OF CARE 129 MG/DL (70-110)
== END 2021-11-11 16:00 | disposition home or self-care (01) | DRG 286 ==
LOC: EMS 12:19 → 5S 15:51
PROVIDERS: ADMIT Hospitalist; ATTEND Hospitalist
PROC: 4A023N7 Measurement of Cardiac Sampling and Pressure, Left Heart, Percutaneous Approach (ICD-10-PCS; principal; 2021-11-10)
PROC: B2111ZZ Fluoroscopy of Multiple Coronary Arteries using Low Osmolar Contrast (ICD-10-PCS; 2021-11-10)
PROC: B31H1ZZ Fluoroscopy of Right Upper Extremity Arteries using Low Osmolar Contrast (ICD-10-PCS; 2021-11-10)
DX: I48.0 Paroxysmal atrial fibrillation (principal); I50.43 Acute on chronic combined systolic (congestive) and diastolic (congestive) heart failure; I13.0 Hypertensive heart and chronic kidney disease with heart failure and stage 1 through stage 4 chronic kidney disease, or unspecified chronic kidney disease; E44.0 Moderate protein-calorie malnutrition; Z68.42 Body mass index [BMI] 45.0-49.9, adult; J44.1 Chronic obstructive pulmonary disease with (acute) exacerbation; N17.9 Acute kidney failure, unspecified; Q21.1 Atrial septal defect; E66.01 Morbid (severe) obesity due to excess calories; E11.22 Type 2 diabetes mellitus with diabetic chronic kidney disease; N18.9 Chronic kidney disease, unspecified; F17.210 Nicotine dependence, cigarettes, uncomplicated; I34.0 Nonrheumatic mitral (valve) insufficiency; M79.7 Fibromyalgia; Z53.29 Procedure and treatment not carried out because of patient's decision for other reasons; F41.1 Generalized anxiety disorder; Z20.822 Contact with and (suspected) exposure to COVID-19; Z79.01 Long term (current) use of anticoagulants; Z85.820 Personal history of malignant melanoma of skin; Z86.16 Personal history of COVID-19; Z90.49 Acquired absence of other specified parts of digestive tract; Z79.899 Other long term (current) drug therapy
CPT/HCPCS: 71045; 80048; 80053; 82550; 82962; 83036; 83735; 83880; 84439; 84443; 84484; 85025; 85610; 85730; 87804; 93005; 93306; 93312; 94640; 99291; G0480; J1160; J1644; J1940; J2250; J2370; J2930; J3010; J3490; J7030; J7050; J7060; Q9967; 36415-L1; 36415-TC; J7613; Z7610

== ENCOUNTER → 2021-12-01 | Outpatient (CLI) | payer MEDICARE, OTHER ==
[~2021-12-01] MED LIST changes: -ARIP15TA27 PO; +CYCL-448 PO; +FLUT16H NASAL; +FURO20 PO; +HYDR-4584 PO; -IBUP-2071 PO; +LOPE-232 PO; -METR250 PO; +NICO-803 TD; -OMEP-99 PO; +OMEP20CA12 PO; +PROM25SU10 PR; -TRAM50TA4 PO; -VENL-193 PO; +VENL-68 PO
[2021-12-01 11:40] VITALS: BP 119/78
== END | disposition home or self-care (01) ==
LOC: SRCNTR 11:08
PROVIDERS: ATTEND Internal Medicine
DX: I50.43 Acute on chronic combined systolic (congestive) and diastolic (congestive) heart failure (principal); I48.0 Paroxysmal atrial fibrillation; I34.0 Nonrheumatic mitral (valve) insufficiency; E11.9 Type 2 diabetes mellitus without complications; F41.9 Anxiety disorder, unspecified; R94.5 Abnormal results of liver function studies; E66.01 Morbid (severe) obesity due to excess calories; Q21.1 Atrial septal defect; Z87.891 Personal history of nicotine dependence
CPT/HCPCS: G0463; Z7500

== ENCOUNTER 2021-12-07 04:06 | Inpatient (IN) | payer MEDICARE, OTHER ==
[~2021-12-07] VITALS: Ht 167.6 cm; Wt 136.5 kg
[2021-12-07] MEDS ORDERED: ASPIRIN 325 MG TABLET PO ONE (04:45)
[2021-12-07] MEDS ORDERED: ALBUTEROL SULFATE 2.5 MG/0.5 ML NEB SOLUTION NEB ONE (04:45)
[2021-12-07] MEDS ORDERED: IPRATROPIUM BROMIDE 0.5 MG/2.5 ML NEB SOLUTION NEB ONE (04:45)
[2021-12-07] MEDS ORDERED: FUROSEMIDE 40 MG/4 ML VIAL IVP ONE (04:45)
[2021-12-07 05:08] LABS: BASOPHILS % (AUTO) 0.7 % (0.0-2.0); EOSINOPHILS % (AUTO) 0.5 % (1.0-6.0); HEMATOCRIT 42.3 % (36-46); HEMOGLOBIN 13.6 g/dL (12.0-16.0); LYMPHOCYTES # (AUTO) 2.1 K/uL (1.0-4.8); LYMPHOCYTES % (AUTO) 17.3 % (22.0-44.0); MEAN CORPUSCULAR HEMOGLOBIN 28.5 pg (26.0-34.0); MEAN CORPUSCULAR VOLUME 89 fL (80-100); MONOCYTES # (AUTO) 0.9 K/uL (0.1-1.0); MONOCYTES % (AUTO) 7.1 % (2.0-9.0); NEUTROPHILS % (AUTO) 74.4 % (40.0-70.0); PLATELET COUNT (AUTO) 221 K/uL (150-450); RED BLOOD CELL COUNT(AUTO) 4.75 MIL/uL (4.00-5.20); RED CELL DISTRIBUTION WIDTH 16.1 % (11.5-14.5)
[2021-12-07 05:19] LABS: ANION GAP 16 mmol/L (8-16); CALCIUM, TOTAL 8.6 mg/dL (8.8-10.5); CARBON DIOXIDE 17 mmol/L (22-29); CHLORIDE 101 mmol/L (98-107); CREATININE 1.37 mg/dL (0.60-1.30); GLUCOSE,RANDOM 169 mg/dL (70-110); POTASSIUM 4.8 mmol/L (3.5-5.1); SODIUM SERUM 134 mmol/L (136-145); UREA NITROGEN, BLOOD 12 mg/dL (7-18)
[2021-12-07 05:22] LABS: GLOMERULAR FILTR. RATE CALC 39 mL/min (>60)
[2021-12-07 05:24] LABS: ALANINE AMINOTRANSFERASE 31 U/L (12-78); ALBUMIN 3.2 g/dL (3.4-5.0); ALKALINE PHOSPHATASE 155 U/L (46-116); ASPARTATE AMINOTRANSFERASE 28 U/L (15-37); BILIRUBIN,TOTAL 0.6 mg/dL (0.1-1.0); LIPASE 80 U/L (73-393); TOTAL PROTEIN, SERUM 6.4 g/dL (6.4-8.2)
[2021-12-07 05:30] LABS: B-TYPE NATRIURETIC PEPTIDE 882 pg/mL (0-100)
[2021-12-07 05:34] LABS: COVID AG,FIA SOURCE NASOPHARYNGEAL
[2021-12-07 05:34] LABS: LACTIC ACID 4.4 mmol/L (0.4-2.0)
[2021-12-07] MEDS ORDERED: ONDANSETRON HCL 4 MG/2 ML VIAL IVP PRN ×2 (05:45→17:30)
[2021-12-07] MEDS ORDERED: ACETAMINOPHEN 325 MG TABLET PO PRN ×2 (05:45→17:30)
[2021-12-07] MEDS ORDERED: 0.9% SODIUM CHLORIDE 10 ML SYRINGE IVP PRN (05:45)
[2021-12-07] MEDS ORDERED: MethylPREDNISolone SOD SUCC 125 MG/2 ML VIAL IVP ONE (05:45)
[2021-12-07 06:01] LABS: INFLUENZA TYPE A NEGATIVE FOR TYPE A (NEGATIVE); INFLUENZA TYPE B NEGATIVE FOR TYPE B (NEGATIVE)
[2021-12-07] MEDS ORDERED: CefTRIAXone 1 GM/DEXTROSE 50 ML IV ONE (06:30)
[2021-12-07] MEDS ORDERED: BUMETANIDE 0.25 MG/ML 4 ML VIAL IVP ONE (06:30)
[2021-12-07] MEDS ORDERED: NITROGLYCERIN 2% (1 GM=INCH) PACKET TP ONE (06:30)
[2021-12-07] MEDS ORDERED: DIAZEPAM 5 MG/ML 2 ML SYRINGE IVP ONE ×2 (06:30→07:30)
[2021-12-07] MEDS: ALBUTEROL SULFATE 2.5 MG/0.5 ML NEB SOLUTION NEB SCH ×4 (07:31→23:34)
[2021-12-07] MEDS: IPRATROPIUM BROMIDE 0.5 MG/2.5 ML NEB SOLUTION NEB SCH ×4 (07:31→23:34)
[2021-12-07] MEDS ORDERED: OXYGEN THERAPY IH SCH (08:00)
[2021-12-07 12:23] VITALS: BP 121/72
[2021-12-07] MEDS ORDERED: TraMADol HCL 50 MG TABLET PO PRN (14:30)
[2021-12-07] MEDS ORDERED: IPRATROPIUM BROMIDE 0.5 MG/2.5 ML NEB SOLUTION NEB PRN ×3 (14:45→17:30)
[2021-12-07] MEDS ORDERED: LEVALBUTEROL HCL 0.63 MG/3 ML NEB SOLUTION NEB PRN (14:45)
[2021-12-07] MEDS ORDERED: IPRATROPIUM BROMIDE 0.5 MG/2.5 ML NEB SOLUTION NEB SCH ×2 (15:00→16:00)
[2021-12-07] MEDS ORDERED: LEVALBUTEROL HCL 0.63 MG/3 ML NEB SOLUTION NEB SCH (16:00)
[2021-12-07 16:14] VITALS: BP 114/78
[2021-12-07] MEDS ORDERED: HydrOXYzine HCL 50 MG TABLET PO PRN (17:00)
[2021-12-07] MEDS ORDERED: IBUP-2077 PO (17:18)
[2021-12-07] MEDS ORDERED: TIOT4MIS2 IH (17:18)
[2021-12-07] MEDS ORDERED: ARIP15TA27 PO (17:18)
[2021-12-07] MEDS ORDERED: TRAM50TA4 PO (17:18)
[2021-12-07] MEDS ORDERED: PROM-163 PO (17:18)
[2021-12-07] MEDS ORDERED: MORPHINE SULFATE 2 MG/ML SYRINGE IVP PRN (17:30)
[2021-12-07] MEDS ORDERED: MAGNESIUM HYDROXIDE SUSPENSION 30 ML UDCUP PO PRN (17:30)
[2021-12-07] MEDS ORDERED: ALBUTEROL SULFATE 2.5 MG/0.5 ML NEB SOLUTION NEB PRN (17:30)
[2021-12-07] MEDS ORDERED: BISACODYL 10 MG RECTAL RECTAL SUPPOSITORY PR PRN (17:30)
[2021-12-07] MEDS: MethylPREDNISolone SOD SUCC 125 MG/2 ML VIAL IVP SCH (18:09)
[2021-12-07 20:08] VITALS: BP 132/76
[2021-12-07] MEDS: DOCUSATE SODIUM 100 MG CAPSULE PO SCH (20:25)
[2021-12-07] MEDS: APIXABAN 5 MG TABLET PO SCH (20:25)
[2021-12-07] MEDS: OxyCODONE HCL/ACETAMINOPHEN 5-325 MG TABLET PO PRN (20:35)
[2021-12-07] MEDS: CYCLOBENZAPRINE HCL 10 MG TABLET PO SCH (20:37)
[2021-12-07] MEDS ORDERED: ROPINIRole HCL 1 MG TABLET PO SCH (21:00)
[2021-12-07] MEDS ORDERED: FUROSEMIDE 20 MG/2 ML VIAL IVP SCH (21:00)
[2021-12-07] MEDS ORDERED: MIRTAZAPINE 30 MG TABLET PO SCH (21:00)
[2021-12-07] MEDS ORDERED: APIXABAN 5 MG TABLET PO SCH (21:00)
[2021-12-07] MEDS ORDERED: [UNRECOGNIZED DRUG - OTHER] IH SCH (21:00)
[2021-12-07] MEDS ORDERED: DOCUSATE SODIUM 100 MG CAPSULE PO SCH (21:00)
[2021-12-07] MEDS ORDERED: METOPROLOL TARTRATE 25 MG TABLET PO SCH (21:00)
[2021-12-07 23:04] VITALS: BP 149/98
[2021-12-07] MEDS ORDERED: DEXTROSE 50%-WATER 25 GM/50 ML SYRINGE IVP PRN (23:15)
[2021-12-08] MEDS: HEPARIN SODIUM,PORCINE 5,000 UNITS/ML VIAL SQ SCH ×2 (00:21→09:44)
[2021-12-08] MEDS: CYCLOBENZAPRINE HCL 10 MG TABLET PO SCH ×3 (00:21→16:00)
[2021-12-08] MEDS: MethylPREDNISolone SOD SUCC 125 MG/2 ML VIAL IVP SCH ×4 (00:21→18:00)
[2021-12-08] MEDS: OxyCODONE HCL/ACETAMINOPHEN 5-325 MG TABLET PO PRN ×4 (00:38→21:13)
[2021-12-08] MEDS: ALBUTEROL SULFATE 2.5 MG/0.5 ML NEB SOLUTION NEB SCH ×6 (03:00→23:00)
[2021-12-08] MEDS: IPRATROPIUM BROMIDE 0.5 MG/2.5 ML NEB SOLUTION NEB SCH ×6 (03:00→23:00)
[2021-12-08 04:15] VITALS: BP 123/64
[2021-12-08 06:26] LABS: BASOPHILS % (AUTO) 0.1 % (0.0-2.0); EOSINOPHILS % (AUTO) 0 % (1.0-6.0); HEMATOCRIT 40.8 % (36-46); HEMOGLOBIN 13.3 g/dL (12.0-16.0); LYMPHOCYTES % (AUTO) 6.7 % (22.0-44.0); MEAN CORPUSCULAR HEMOGLOBIN 28.6 pg (26.0-34.0); MEAN CORPUSCULAR HGB CONC 32.6 G/dL (31.0-37.0); MEAN CORPUSCULAR VOLUME 88 fL (80-100); MONOCYTES # (AUTO) 0.3 K/uL (0.1-1.0); MONOCYTES % (AUTO) 2.1 % (2.0-9.0); PLATELET COUNT (AUTO) 200 K/uL (150-450); RED BLOOD CELL COUNT(AUTO) 4.65 MIL/uL (4.00-5.20); RED CELL DISTRIBUTION WIDTH 15.8 % (11.5-14.5)
[2021-12-08] MEDS: INSULIN LISPRO 100 UNITS/ML SQ PRN ×2 (06:32→11:57)
[2021-12-08 06:38] LABS: CREATININE 1.36 mg/dL (0.60-1.30); POTASSIUM 4.4 mmol/L (3.5-5.1)
[2021-12-08 06:52] LABS: NEUTROPHILS % (AUTO) 91.1 % (40.0-70.0)
[2021-12-08 07:25] VITALS: BP 119/79
[2021-12-08] MEDS ORDERED: OMEPRAZOLE 20 MG CAPSULE PO SCH (09:00)
[2021-12-08] MEDS ORDERED: FUROSEMIDE 20 MG/2 ML VIAL IVP SCH (09:00)
[2021-12-08] MEDS: LISINOPRIL 5 MG TABLET PO SCH (09:44)
[2021-12-08] MEDS: DOCUSATE SODIUM 100 MG CAPSULE PO SCH ×2 (09:45→20:53)
[2021-12-08] MEDS: LORATADINE 10 MG TABLET PO SCH (09:45)
[2021-12-08] MEDS: PANTOPRAZOLE SODIUM 40 MG DR TABLET PO SCH (09:45)
[2021-12-08] MEDS: APIXABAN 5 MG TABLET PO SCH ×2 (09:45→20:53)
[2021-12-08] MEDS: METOPROLOL SUCCINATE 25 MG ER TABLET PO SCH (09:45)
[2021-12-08] MEDS: FLUTICASONE PROPIONATE 50 MCG/SPRAY 16 GM NASAL SPRAY NASAL SCH (09:46)
[2021-12-08] MEDS: GLIMEPIRIDE 2 MG TABLET PO SCH (09:46)
[2021-12-08] MEDS: NICOTINE 21 MG/24 HOUR PATCH TD SCH (09:47)
[2021-12-08] MEDS: VENLAFAXINE HCL 150 MG ER CAPSULE PO SCH (09:47)
[2021-12-08] MEDS ORDERED: HydrOXYzine HCL 50 MG TABLET PO PRN (11:00)
[2021-12-08 11:02] VITALS: BP 130/74
[2021-12-08 15:45] VITALS: BP 124/79
[2021-12-08] MEDS ORDERED: AMIODARONE HCL 150 MG in DEXTROSE 5%-WATER 97 ML IV ONE (18:15)
[2021-12-08] MEDS ORDERED: AMIODARONE HCL 360 MG in DEXTROSE 5%-WATER 242.8 ML IV ONE (18:15)
[2021-12-08 20:03] VITALS: BP 104/62
[2021-12-08] MEDS: MIRTAZAPINE 30 MG TABLET PO SCH (20:57)
[2021-12-08] MEDS ORDERED: DIGOXIN 250 MCG/ML 2 ML AMP IVP ONE (22:15)
[2021-12-09] VITALS (7 sets, daily range): BP systolic 111–133; BP diastolic 75–99
[2021-12-09] MEDS ORDERED: AMIODARONE HCL 540 MG in DEXTROSE 5%-WATER 239.2 ML IV ONE (00:15)
[2021-12-09] MEDS: CYCLOBENZAPRINE HCL 10 MG TABLET PO SCH ×4 (00:49→23:56)
[2021-12-09] MEDS: MethylPREDNISolone SOD SUCC 125 MG/2 ML VIAL IVP SCH ×5 (00:49→23:56)
[2021-12-09] MEDS: INSULIN LISPRO 100 UNITS/ML SQ PRN ×5 (01:16→20:02)
[2021-12-09] MEDS ORDERED: DIGOXIN 250 MCG/ML 2 ML AMP IVP ONE (07:00)
[2021-12-09] MEDS: IPRATROPIUM BROMIDE 0.5 MG/2.5 ML NEB SOLUTION NEB SCH ×6 (07:43→22:37)
[2021-12-09] MEDS: GLIMEPIRIDE 2 MG TABLET PO SCH (07:59)
[2021-12-09] MEDS: PANTOPRAZOLE SODIUM 40 MG DR TABLET PO SCH (08:00)
[2021-12-09] MEDS: METOPROLOL SUCCINATE 25 MG ER TABLET PO SCH (08:00)
[2021-12-09] MEDS: VENLAFAXINE HCL 150 MG ER CAPSULE PO SCH (08:00)
[2021-12-09] MEDS: DOCUSATE SODIUM 100 MG CAPSULE PO SCH ×2 (08:00→19:50)
[2021-12-09] MEDS: APIXABAN 5 MG TABLET PO SCH ×2 (08:00→19:50)
[2021-12-09] MEDS: FLUTICASONE PROPIONATE 50 MCG/SPRAY 16 GM NASAL SPRAY NASAL SCH (08:01)
[2021-12-09] MEDS: LORATADINE 10 MG TABLET PO SCH (08:01)
[2021-12-09] MEDS: LISINOPRIL 5 MG TABLET PO SCH (08:01)
[2021-12-09] MEDS: OxyCODONE HCL/ACETAMINOPHEN 5-325 MG TABLET PO PRN ×4 (08:02→23:56)
[2021-12-09] MEDS: FUROSEMIDE 40 MG/4 ML VIAL IVP SCH (08:02)
[2021-12-09] MEDS: NICOTINE 21 MG/24 HOUR PATCH TD SCH (08:03)
[2021-12-09 08:07] LABS: CALCIUM, TOTAL 8.6 mg/dL (8.8-10.5); CREATININE 1.26 mg/dL (0.60-1.30); POTASSIUM 5.2 mmol/L (3.5-5.1)
[2021-12-09 08:47] LABS: GLUCOMETER DEV NAME(LOC) 5S.2B; GLUCOSE,POINT OF CARE 385 MG/DL (70-110)
[2021-12-09 08:47] LABS: GLUCOMETER DEV NAME(LOC) 5S.2B; GLUCOSE,POINT OF CARE 278 MG/DL (70-110)
[2021-12-09 08:48] LABS: GLUCOMETER DEV NAME(LOC) 5S.2B; GLUCOSE,POINT OF CARE 346 MG/DL (70-110)
[2021-12-09 08:54] LABS: GLUCOMETER DEV NAME(LOC) 5S.2B; GLUCOSE,POINT OF CARE 320 MG/DL (70-110)
[2021-12-09 09:02] LABS: GLUCOMETER DEV NAME(LOC) 5S.2B; GLUCOSE,POINT OF CARE 196 MG/DL (70-110)
[2021-12-09] MEDS: NYSTATIN 15 GM POWDER BOTTLE TP SCH ×2 (17:26→19:58)
[2021-12-09] MEDS: AMIODARONE HCL 750 MG in DEXTROSE 5%-WATER 485 ML IV SCH (18:28)
[2021-12-09 18:31] LABS: GLUCOMETER DEV NAME(LOC) 5N.1C; GLUCOSE,POINT OF CARE 295 MG/DL (70-110)
[2021-12-09] MEDS: MIRTAZAPINE 30 MG TABLET PO SCH (19:50)
[2021-12-09 20:01] LABS: GLUCOMETER DEV NAME(LOC) 5S.2B; GLUCOSE,POINT OF CARE 242 MG/DL (70-110)
[2021-12-09 22:41] LABS: GLUCOMETER DEV NAME(LOC) 5N.1C; GLUCOSE,POINT OF CARE 281 MG/DL (70-110)
[2021-12-10] MEDS ORDERED: 0.9% SODIUM CHLORIDE 5 ML NEB SOLUTION NEB ONE (03:46)
[2021-12-10] MEDS: IPRATROPIUM BROMIDE 0.5 MG/2.5 ML NEB SOLUTION NEB SCH ×6 (03:48→23:38)
[2021-12-10 04:31] VITALS: BP 127/98
[2021-12-10] MEDS: MethylPREDNISolone SOD SUCC 125 MG/2 ML VIAL IVP SCH (05:40)
[2021-12-10] MEDS: OxyCODONE HCL/ACETAMINOPHEN 5-325 MG TABLET PO PRN ×3 (05:40→20:56)
[2021-12-10] MEDS: INSULIN LISPRO 100 UNITS/ML SQ PRN ×4 (05:44→21:02)
[2021-12-10 05:56] LABS: CALCIUM, TOTAL 8.7 mg/dL (8.8-10.5); CREATININE 1.32 mg/dL (0.60-1.30); POTASSIUM 4.8 mmol/L (3.5-5.1)
[2021-12-10 06:14] LABS: BASOPHILS % (AUTO) 0.1 % (0.0-2.0); EOSINOPHILS % (AUTO) 0 % (1.0-6.0); HEMATOCRIT 40.2 % (36-46); HEMOGLOBIN 12.8 g/dL (12.0-16.0); LYMPHOCYTES # (AUTO) 0.6 K/uL (1.0-4.8); LYMPHOCYTES % (AUTO) 3.9 % (22.0-44.0); MEAN CORPUSCULAR HEMOGLOBIN 28.1 pg (26.0-34.0); MEAN CORPUSCULAR HGB CONC 31.7 G/dL (31.0-37.0); MEAN CORPUSCULAR VOLUME 89 fL (80-100); MONOCYTES # (AUTO) 0.5 K/uL (0.1-1.0); MONOCYTES % (AUTO) 3.7 % (2.0-9.0); NEUTROPHILS # (AUTO) 13.2 K/uL (1.8-7.7); PLATELET COUNT (AUTO) 223 K/uL (150-450); RED BLOOD CELL COUNT(AUTO) 4.53 MIL/uL (4.00-5.20)
[2021-12-10 06:21] LABS: GLUCOMETER DEV NAME(LOC) 5N.1C; GLUCOSE,POINT OF CARE 346 MG/DL (70-110)
[2021-12-10 07:10] LABS: NEUTROPHILS % (AUTO) 92.3 % (40.0-70.0)
[2021-12-10 07:35] VITALS: BP 123/95
[2021-12-10] MEDS: GLIMEPIRIDE 2 MG TABLET PO SCH (08:12)
[2021-12-10] MEDS: METOPROLOL SUCCINATE 25 MG ER TABLET PO SCH (08:12)
[2021-12-10] MEDS: DOCUSATE SODIUM 100 MG CAPSULE PO SCH ×2 (08:12→20:56)
[2021-12-10] MEDS: APIXABAN 5 MG TABLET PO SCH ×2 (08:12→20:56)
[2021-12-10] MEDS: LISINOPRIL 5 MG TABLET PO SCH (08:12)
[2021-12-10] MEDS: VENLAFAXINE HCL 150 MG ER CAPSULE PO SCH (08:12)
[2021-12-10] MEDS: PANTOPRAZOLE SODIUM 40 MG DR TABLET PO SCH (08:12)
[2021-12-10] MEDS: CYCLOBENZAPRINE HCL 10 MG TABLET PO SCH ×2 (08:12→16:49)
[2021-12-10] MEDS: NYSTATIN 15 GM POWDER BOTTLE TP SCH ×2 (08:13→21:00)
[2021-12-10] MEDS: FUROSEMIDE 40 MG/4 ML VIAL IVP SCH (08:13)
[2021-12-10] MEDS: NICOTINE 21 MG/24 HOUR PATCH TD SCH (08:13)
[2021-12-10] MEDS: FLUTICASONE PROPIONATE 50 MCG/SPRAY 16 GM NASAL SPRAY NASAL SCH (08:13)
[2021-12-10] MEDS: LORATADINE 10 MG TABLET PO SCH (08:13)
[2021-12-10 09:36] LABS: THYROID STIMULATING HORMONE 0.08 uIU/mL (0.36-3.74)
[2021-12-10] MEDS ORDERED: DIGOXIN 250 MCG/ML 2 ML AMP IVP ONE (10:15)
[2021-12-10] MEDS: PredniSONE 20 MG TABLET PO SCH (10:52)
[2021-12-10 10:55] LABS: FREE T4 (FREE THYROXINE) 1.46 ng/dL (0.76-1.46)
[2021-12-10] MEDS: INSULIN GLARGINE,HUM.REC.ANLOG 100 UNITS/ML SQ SCH ×2 (11:02→21:18)
[2021-12-10 11:27] VITALS: BP 118/86
[2021-12-10 13:16] LABS: GLUCOMETER DEV NAME(LOC) 5N.1C; GLUCOSE,POINT OF CARE 373 MG/DL (70-110)
[2021-12-10 14:33] VITALS: BP 116/84
[2021-12-10] MEDS: AMIODARONE HCL 750 MG in DEXTROSE 5%-WATER 485 ML IV SCH (18:07)
[2021-12-10 20:26] VITALS: BP 111/76
[2021-12-10] MEDS: MIRTAZAPINE 30 MG TABLET PO SCH (20:56)
[2021-12-10 22:52] VITALS: BP 145/66
[2021-12-11] MEDS: CYCLOBENZAPRINE HCL 10 MG TABLET PO SCH ×4 (00:09→23:49)
[2021-12-11] MEDS ORDERED: METOPROLOL TARTRATE 5 MG/5 ML VIAL IVP ONE ×2 (00:30→05:15)
[2021-12-11 03:25] LABS: APPEARANCE,URINE CLEAR (CLEAR); BILIRUBIN,URINE NEGATIVE (NEGATIVE); GLUCOSE, URINE (UA) NEGATIVE (NEGATIVE); KETONES,URINE NEGATIVE (NEGATIVE); LEUKOCYTE ESTERASE ,URINE NEGATIVE (NEGATIVE); NITRATE,URINE NEGATIVE (NEGATIVE); OCCULT BLOOD,URINE NEGATIVE (NEGATIVE); PROTEIN,URINE NEGATIVE (NEGATIVE); SPECIFIC GRAVITIY, URINE 1.014 (1.003-1.030); UROBILINOGEN,URINE <=1.0 mg/dL (<=1.0)
[2021-12-11] MEDS: IPRATROPIUM BROMIDE 0.5 MG/2.5 ML NEB SOLUTION NEB SCH ×6 (03:48→23:05)
[2021-12-11 03:53] LABS: BACTERIA,URINE Few /HPF (None Seen); RBC,URINE 0-2 /HPF (0-2); WBC,URINE 0-2 /HPF (0-5)
[2021-12-11 04:21] LABS: GLUCOMETER DEV NAME(LOC) 5N.1C; GLUCOSE,POINT OF CARE 276 MG/DL (70-110)
[2021-12-11 04:22] LABS: GLUCOMETER DEV NAME(LOC) 5N.1C; GLUCOSE,POINT OF CARE 284 MG/DL (70-110)
[2021-12-11 04:43] VITALS: BP 131/75
[2021-12-11] MEDS: OxyCODONE HCL/ACETAMINOPHEN 5-325 MG TABLET PO PRN ×2 (05:11→12:06)
[2021-12-11 05:56] LABS: BASOPHILS % (AUTO) 0.1 % (0.0-2.0); EOSINOPHILS % (AUTO) 0.1 % (1.0-6.0); HEMATOCRIT 42.4 % (36-46); HEMOGLOBIN 13.3 g/dL (12.0-16.0); LYMPHOCYTES # (AUTO) 1.7 K/uL (1.0-4.8); LYMPHOCYTES % (AUTO) 11.2 % (22.0-44.0); MEAN CORPUSCULAR HEMOGLOBIN 27.8 pg (26.0-34.0); MEAN CORPUSCULAR HGB CONC 31.5 G/dL (31.0-37.0); MEAN CORPUSCULAR VOLUME 88 fL (80-100); MONOCYTES # (AUTO) 1.6 K/uL (0.1-1.0); MONOCYTES % (AUTO) 10.7 % (2.0-9.0); NEUTROPHILS # (AUTO) 11.8 K/uL (1.8-7.7); NEUTROPHILS % (AUTO) 77.9 % (40.0-70.0); PLATELET COUNT (AUTO) 251 K/uL (150-450); RED CELL DISTRIBUTION WIDTH 15.7 % (11.5-14.5)
[2021-12-11 06:29] LABS: CREATININE 1.25 mg/dL (0.60-1.30); POTASSIUM 4.2 mmol/L (3.5-5.1)
[2021-12-11 06:30] LABS: CALCIUM, TOTAL 8.7 mg/dL (8.8-10.5)
[2021-12-11 07:26] LABS: GLUCOMETER DEV NAME(LOC) 5N.1C; GLUCOSE,POINT OF CARE 147 MG/DL (70-110)
[2021-12-11 08:00] VITALS: BP 122/90
[2021-12-11] MEDS: GLIMEPIRIDE 2 MG TABLET PO SCH (08:51)
[2021-12-11] MEDS: APIXABAN 5 MG TABLET PO SCH ×2 (08:52→20:57)
[2021-12-11] MEDS: NICOTINE 21 MG/24 HOUR PATCH TD SCH (08:52)
[2021-12-11] MEDS: VENLAFAXINE HCL 150 MG ER CAPSULE PO SCH (08:53)
[2021-12-11] MEDS: LISINOPRIL 5 MG TABLET PO SCH (08:53)
[2021-12-11] MEDS: PredniSONE 20 MG TABLET PO SCH (08:53)
[2021-12-11] MEDS: METOPROLOL SUCCINATE 25 MG ER TABLET PO SCH (08:53)
[2021-12-11] MEDS: PANTOPRAZOLE SODIUM 40 MG DR TABLET PO SCH (08:53)
[2021-12-11] MEDS: FLUTICASONE PROPIONATE 50 MCG/SPRAY 16 GM NASAL SPRAY NASAL SCH (08:54)
[2021-12-11] MEDS: FUROSEMIDE 40 MG/4 ML VIAL IVP SCH (08:54)
[2021-12-11] MEDS: LORATADINE 10 MG TABLET PO SCH (08:54)
[2021-12-11] MEDS: NYSTATIN 15 GM POWDER BOTTLE TP SCH ×2 (08:55→21:02)
[2021-12-11] MEDS: INSULIN GLARGINE,HUM.REC.ANLOG 100 UNITS/ML SQ SCH ×2 (09:12→21:02)
[2021-12-11] MEDS: DOCUSATE SODIUM 100 MG CAPSULE PO SCH ×2 (09:14→20:57)
[2021-12-11 09:31] LABS: GLUCOMETER DEV NAME(LOC) 5N.1C; GLUCOSE,POINT OF CARE 246 MG/DL (70-110)
[2021-12-11] MEDS ORDERED: DILTIAZEM HCL 5 MG/ML 5 ML VIAL IVP ONE ×2 (10:00→18:00)
[2021-12-11 12:00] VITALS: BP 100/56
[2021-12-11] MEDS: CLINDAMYCIN HCL 300 MG CAPSULE PO SCH ×3 (12:01→23:49)
[2021-12-11] MEDS: INSULIN LISPRO 100 UNITS/ML SQ PRN ×3 (12:02→21:01)
[2021-12-11 12:31] LABS: BASOPHILS % (AUTO) 0.1 % (0.0-2.0); EOSINOPHILS % (AUTO) 0.3 % (1.0-6.0); HEMATOCRIT 44.1 % (36-46); HEMOGLOBIN 13.9 g/dL (12.0-16.0); LYMPHOCYTES # (AUTO) 1.7 K/uL (1.0-4.8); MEAN CORPUSCULAR HEMOGLOBIN 27.8 pg (26.0-34.0); MEAN CORPUSCULAR HGB CONC 31.6 G/dL (31.0-37.0); MEAN CORPUSCULAR VOLUME 88 fL (80-100); MONOCYTES # (AUTO) 1.4 K/uL (0.1-1.0); MONOCYTES % (AUTO) 11.5 % (2.0-9.0); NEUTROPHILS # (AUTO) 9.2 K/uL (1.8-7.7); NEUTROPHILS % (AUTO) 74.1 % (40.0-70.0); PLATELET COUNT (AUTO) 243 K/uL (150-450); RED BLOOD CELL COUNT(AUTO) 5.01 MIL/uL (4.00-5.20); RED CELL DISTRIBUTION WIDTH 15.8 % (11.5-14.5)
[2021-12-11 12:41] LABS: CALCIUM, TOTAL 8.5 mg/dL (8.8-10.5); CREATININE 1.3 mg/dL (0.60-1.30); POTASSIUM 4.1 mmol/L (3.5-5.1)
[2021-12-11 13:01] LABS: GLUCOMETER DEV NAME(LOC) 5N.1C; GLUCOSE,POINT OF CARE 374 MG/DL (70-110)
[2021-12-11 16:00] VITALS: BP 113/72
[2021-12-11 18:06] LABS: GLUCOMETER DEV NAME(LOC) 5N.3; GLUCOSE,POINT OF CARE 356 MG/DL (70-110)
[2021-12-11] MEDS: AMIODARONE HCL 750 MG in DEXTROSE 5%-WATER 485 ML IV SCH (18:23)
[2021-12-11 20:27] VITALS: BP 103/72
[2021-12-11] MEDS: ZOLPIDEM TARTRATE 5 MG TABLET PO PRN (20:57)
[2021-12-11] MEDS: MIRTAZAPINE 30 MG TABLET PO SCH (20:57)
[2021-12-11] MEDS: TraMADol HCL 50 MG TABLET PO PRN (22:26)
[2021-12-11 23:50] VITALS: BP 132/88
[2021-12-12] MEDS: IPRATROPIUM BROMIDE 0.5 MG/2.5 ML NEB SOLUTION NEB SCH ×6 (02:50→22:47)
[2021-12-12 03:15] VITALS: BP 110/52
[2021-12-12] MEDS ORDERED: HydrOXYzine HCL 25 MG TABLET PO ONE (04:30)
[2021-12-12 07:39] VITALS: BP 124/85
[2021-12-12 08:00] LABS: BASOPHILS % (AUTO) 0.5 % (0.0-2.0); EOSINOPHILS % (AUTO) 0.5 % (1.0-6.0); HEMATOCRIT 43.6 % (36-46); HEMOGLOBIN 14.1 g/dL (12.0-16.0); LYMPHOCYTES # (AUTO) 3.5 K/uL (1.0-4.8); LYMPHOCYTES % (AUTO) 23.6 % (22.0-44.0); MEAN CORPUSCULAR HEMOGLOBIN 27.9 pg (26.0-34.0); MEAN CORPUSCULAR HGB CONC 32.2 G/dL (31.0-37.0); MEAN CORPUSCULAR VOLUME 87 fL (80-100); MONOCYTES # (AUTO) 1.5 K/uL (0.1-1.0); NEUTROPHILS # (AUTO) 9.7 K/uL (1.8-7.7); NEUTROPHILS % (AUTO) 65.4 % (40.0-70.0); PLATELET COUNT (AUTO) 266 K/uL (150-450); RED BLOOD CELL COUNT(AUTO) 5.03 MIL/uL (4.00-5.20); RED CELL DISTRIBUTION WIDTH 15.6 % (11.5-14.5)
[2021-12-12] MEDS: PredniSONE 20 MG TABLET PO SCH (08:24)
[2021-12-12] MEDS: LISINOPRIL 5 MG TABLET PO SCH (08:25)
[2021-12-12] MEDS: VENLAFAXINE HCL 150 MG ER CAPSULE PO SCH (08:25)
[2021-12-12] MEDS: DOCUSATE SODIUM 100 MG CAPSULE PO SCH ×2 (08:25→20:00)
[2021-12-12] MEDS: PANTOPRAZOLE SODIUM 40 MG DR TABLET PO SCH (08:25)
[2021-12-12] MEDS: APIXABAN 5 MG TABLET PO SCH ×2 (08:25→20:01)
[2021-12-12] MEDS: CLINDAMYCIN HCL 300 MG CAPSULE PO SCH ×3 (08:25→23:31)
[2021-12-12] MEDS: LORATADINE 10 MG TABLET PO SCH (08:25)
[2021-12-12] MEDS: METOPROLOL SUCCINATE 25 MG ER TABLET PO SCH (08:25)
[2021-12-12] MEDS: CYCLOBENZAPRINE HCL 10 MG TABLET PO SCH ×3 (08:26→23:31)
[2021-12-12] MEDS: NICOTINE 21 MG/24 HOUR PATCH TD SCH (08:26)
[2021-12-12] MEDS: FLUTICASONE PROPIONATE 50 MCG/SPRAY 16 GM NASAL SPRAY NASAL SCH (08:27)
[2021-12-12] MEDS: FUROSEMIDE 40 MG/4 ML VIAL IVP SCH (08:27)
[2021-12-12] MEDS: NYSTATIN 15 GM POWDER BOTTLE TP SCH ×2 (08:27→20:07)
[2021-12-12] MEDS: GLIMEPIRIDE 2 MG TABLET PO SCH (08:27)
[2021-12-12] MEDS: METHIMAZOLE 10 MG TABLET PO SCH ×3 (08:28→23:32)
[2021-12-12] MEDS: TraMADol HCL 50 MG TABLET PO PRN ×2 (08:31→20:00)
[2021-12-12] MEDS: INSULIN GLARGINE,HUM.REC.ANLOG 100 UNITS/ML SQ SCH ×2 (08:52→20:02)
[2021-12-12] MEDS ORDERED: DILTIAZEM HCL 30 MG TABLET PO SCH (10:00)
[2021-12-12 10:56] LABS: GLUCOMETER DEV NAME(LOC) 5N.3; GLUCOSE,POINT OF CARE 118 MG/DL (70-110)
[2021-12-12 10:56] LABS: GLUCOMETER DEV NAME(LOC) 5N.1C; GLUCOSE,POINT OF CARE 234 MG/DL (70-110)
[2021-12-12 10:56] LABS: GLUCOMETER DEV NAME(LOC) 5N.1C; GLUCOSE,POINT OF CARE 293 MG/DL (70-110)
[2021-12-12 11:32] VITALS: BP 130/70
[2021-12-12] MEDS: DILTIAZEM HCL 30 MG TABLET PO SCH ×3 (12:23→23:31)
[2021-12-12] MEDS: DIGOXIN 125 MCG TABLET PO SCH (12:23)
[2021-12-12] MEDS: INSULIN LISPRO 100 UNITS/ML SQ PRN ×3 (12:32→20:02)
[2021-12-12 15:15] VITALS: BP 131/80
[2021-12-12 19:21] VITALS: BP 139/57
[2021-12-12 19:26] LABS: GLUCOMETER DEV NAME(LOC) 5N.3; GLUCOSE,POINT OF CARE 231 MG/DL (70-110)
[2021-12-12 19:26] LABS: GLUCOMETER DEV NAME(LOC) 5N.3; GLUCOSE,POINT OF CARE 380 MG/DL (70-110)
[2021-12-12 19:26] LABS: GLUCOMETER DEV NAME(LOC) 5N.3; GLUCOSE,POINT OF CARE 102 MG/DL (70-110)
[2021-12-12] MEDS: MIRTAZAPINE 30 MG TABLET PO SCH (20:00)
[2021-12-12] MEDS: ZOLPIDEM TARTRATE 5 MG TABLET PO PRN (20:01)
[2021-12-12 20:06] LABS: GLUCOMETER DEV NAME(LOC) 5N.3; GLUCOSE,POINT OF CARE 236 MG/DL (70-110)
[2021-12-12 23:14] VITALS: BP 114/67
[2021-12-13] MEDS: IPRATROPIUM BROMIDE 0.5 MG/2.5 ML NEB SOLUTION NEB SCH ×6 (02:50→23:02)
[2021-12-13 03:32] VITALS: BP 107/63
[2021-12-13] MEDS: TraMADol HCL 50 MG TABLET PO PRN ×3 (04:16→20:17)
[2021-12-13] MEDS: DILTIAZEM HCL 30 MG TABLET PO SCH ×4 (06:22→23:20)
[2021-12-13 06:30] VITALS: BP 135/77
[2021-12-13 06:42] LABS: GLUCOMETER DEV NAME(LOC) 5N.3; GLUCOSE,POINT OF CARE 103 MG/DL (70-110)
[2021-12-13 07:39] LABS: BASOPHILS % (AUTO) 0.4 % (0.0-2.0); EOSINOPHILS % (AUTO) 1.3 % (1.0-6.0); HEMATOCRIT 43.1 % (36-46); HEMOGLOBIN 13.6 g/dL (12.0-16.0); LYMPHOCYTES % (AUTO) 23.3 % (22.0-44.0); MEAN CORPUSCULAR HEMOGLOBIN 27.7 pg (26.0-34.0); MEAN CORPUSCULAR HGB CONC 31.5 G/dL (31.0-37.0); MEAN CORPUSCULAR VOLUME 88 fL (80-100); MONOCYTES % (AUTO) 8.2 % (2.0-9.0); NEUTROPHILS # (AUTO) 8.6 K/uL (1.8-7.7); NEUTROPHILS % (AUTO) 66.8 % (40.0-70.0); PLATELET COUNT (AUTO) 247 K/uL (150-450); RED BLOOD CELL COUNT(AUTO) 4.91 MIL/uL (4.00-5.20); RED CELL DISTRIBUTION WIDTH 15.6 % (11.5-14.5)
[2021-12-13 07:47] VITALS: BP 144/98
[2021-12-13 08:10] LABS: CALCIUM, TOTAL 8.1 mg/dL (8.8-10.5); CREATININE 0.95 mg/dL (0.60-1.30); POTASSIUM 4.1 mmol/L (3.5-5.1)
[2021-12-13] MEDS: METOPROLOL SUCCINATE 25 MG ER TABLET PO SCH (09:00)
[2021-12-13] MEDS: FUROSEMIDE 40 MG/4 ML VIAL IVP SCH (09:07)
[2021-12-13] MEDS: CYCLOBENZAPRINE HCL 10 MG TABLET PO SCH ×3 (09:08→23:19)
[2021-12-13] MEDS: PredniSONE 20 MG TABLET PO SCH (09:08)
[2021-12-13] MEDS: DOCUSATE SODIUM 100 MG CAPSULE PO SCH ×2 (09:08→20:17)
[2021-12-13] MEDS: NICOTINE 21 MG/24 HOUR PATCH TD SCH (09:09)
[2021-12-13] MEDS: GLIMEPIRIDE 2 MG TABLET PO SCH (09:09)
[2021-12-13] MEDS: PANTOPRAZOLE SODIUM 40 MG DR TABLET PO SCH (09:09)
[2021-12-13] MEDS: DIGOXIN 125 MCG TABLET PO SCH (09:10)
[2021-12-13] MEDS: CLINDAMYCIN HCL 300 MG CAPSULE PO SCH ×3 (09:10→23:20)
[2021-12-13] MEDS: LISINOPRIL 5 MG TABLET PO SCH (09:11)
[2021-12-13] MEDS: METHIMAZOLE 10 MG TABLET PO SCH ×3 (09:11→23:20)
[2021-12-13] MEDS: FLUTICASONE PROPIONATE 50 MCG/SPRAY 16 GM NASAL SPRAY NASAL SCH (09:11)
[2021-12-13] MEDS: LORATADINE 10 MG TABLET PO SCH (09:11)
[2021-12-13] MEDS: APIXABAN 5 MG TABLET PO SCH ×2 (09:11→20:17)
[2021-12-13] MEDS: VENLAFAXINE HCL 150 MG ER CAPSULE PO SCH (09:11)
[2021-12-13] MEDS: INSULIN GLARGINE,HUM.REC.ANLOG 100 UNITS/ML SQ SCH ×2 (09:12→20:18)
[2021-12-13] MEDS ORDERED: METOPROLOL SUCCINATE 25 MG ER TABLET PO SCH (09:15)
[2021-12-13] MEDS ORDERED: METOPROLOL SUCCINATE 25 MG ER TABLET PO ONE (10:15)
[2021-12-13 11:13] VITALS: BP 150/80
[2021-12-13] MEDS ORDERED: METOPROLOL SUCCINATE 25 MG ER TABLET PO STA (11:28)
[2021-12-13] MEDS: INSULIN LISPRO 100 UNITS/ML SQ PRN ×3 (11:29→20:19)
[2021-12-13 11:41] LABS: GLUCOMETER DEV NAME(LOC) 5N.3; GLUCOSE,POINT OF CARE 285 MG/DL (70-110)
[2021-12-13] MEDS: NYSTATIN 15 GM POWDER BOTTLE TP SCH ×2 (13:43→20:17)
[2021-12-13 15:22] VITALS: BP 120/64
[2021-12-13] MEDS: MIRTAZAPINE 30 MG TABLET PO SCH (20:17)
[2021-12-13] MEDS: ZOLPIDEM TARTRATE 5 MG TABLET PO PRN (20:17)
[2021-12-13 20:39] VITALS: BP 114/75
[2021-12-14 01:45] VITALS: BP 113/63
[2021-12-14] MEDS: IPRATROPIUM BROMIDE 0.5 MG/2.5 ML NEB SOLUTION NEB SCH ×4 (02:41→15:09)
[2021-12-14] MEDS: TraMADol HCL 50 MG TABLET PO PRN ×2 (05:35→11:41)
[2021-12-14] MEDS: DILTIAZEM HCL 30 MG TABLET PO SCH ×2 (05:35→11:41)
[2021-12-14] MEDS: INSULIN LISPRO 100 UNITS/ML SQ PRN ×2 (05:58→11:46)
[2021-12-14] MEDS ORDERED: HydrOXYzine HCL 25 MG TABLET PO ONE (06:00)
[2021-12-14 07:21] LABS: GLUCOMETER DEV NAME(LOC) 5N.1C; GLUCOSE,POINT OF CARE 144 MG/DL (70-110)
[2021-12-14 07:24] VITALS: BP 120/66
[2021-12-14 08:05] VITALS: BP 125/77
[2021-12-14] MEDS: METHIMAZOLE 10 MG TABLET PO SCH ×2 (08:34→15:58)
[2021-12-14] MEDS: GLIMEPIRIDE 2 MG TABLET PO SCH (08:34)
[2021-12-14] MEDS: LISINOPRIL 5 MG TABLET PO SCH (08:35)
[2021-12-14] MEDS: APIXABAN 5 MG TABLET PO SCH (08:35)
[2021-12-14] MEDS: PANTOPRAZOLE SODIUM 40 MG DR TABLET PO SCH (08:35)
[2021-12-14] MEDS: CLINDAMYCIN HCL 300 MG CAPSULE PO SCH ×2 (08:35→15:58)
[2021-12-14] MEDS: CYCLOBENZAPRINE HCL 10 MG TABLET PO SCH ×2 (08:35→15:58)
[2021-12-14] MEDS: DOCUSATE SODIUM 100 MG CAPSULE PO SCH (08:35)
[2021-12-14] MEDS: PredniSONE 20 MG TABLET PO SCH (08:35)
[2021-12-14] MEDS: FUROSEMIDE 40 MG/4 ML VIAL IVP SCH (08:35)
[2021-12-14] MEDS: VENLAFAXINE HCL 150 MG ER CAPSULE PO SCH (08:35)
[2021-12-14] MEDS: DIGOXIN 125 MCG TABLET PO SCH (08:35)
[2021-12-14] MEDS: LORATADINE 10 MG TABLET PO SCH (08:35)
[2021-12-14] MEDS: NICOTINE 21 MG/24 HOUR PATCH TD SCH (08:36)
[2021-12-14] MEDS: FLUTICASONE PROPIONATE 50 MCG/SPRAY 16 GM NASAL SPRAY NASAL SCH (08:36)
[2021-12-14] MEDS: NYSTATIN 15 GM POWDER BOTTLE TP SCH (08:36)
[2021-12-14] MEDS: INSULIN GLARGINE,HUM.REC.ANLOG 100 UNITS/ML SQ SCH (08:51)
[2021-12-14] MEDS ORDERED: METOPROLOL SUCCINATE 25 MG ER TABLET PO SCH (09:00)
[2021-12-14] MEDS ORDERED: METO-558 PO (09:31)
[2021-12-14] MEDS ORDERED: FURO40 PO (09:32)
[2021-12-14] MEDS ORDERED: DIGO125T2 PO (09:33)
[2021-12-14] MEDS ORDERED: DILT30TA3 PO (09:34)
[2021-12-14] MEDS ORDERED: PRED-554 PO (09:39)
[2021-12-14] MEDS ORDERED: CLIN300C58 PO (09:40)
[2021-12-14] MEDS ORDERED: METH-387 PO (09:41)
[2021-12-14 11:13] VITALS: BP 114/61
[2021-12-14 14:56] VITALS: BP 111/62
[2021-12-15 05:32] LABS: GLUCOMETER DEV NAME(LOC) 5N.3; GLUCOSE,POINT OF CARE 266 MG/DL (70-110)
[2021-12-15 05:32] LABS: GLUCOMETER DEV NAME(LOC) 5N.3; GLUCOSE,POINT OF CARE 284 MG/DL (70-110)
[2021-12-15 05:32] LABS: GLUCOMETER DEV NAME(LOC) 5N.3; GLUCOSE,POINT OF CARE 276 MG/DL (70-110)
[2021-12-22] MEDS ORDERED: DILT60SR PO (15:00)
== END 2021-12-14 16:35 | disposition home or self-care (01) | DRG 291 ==
LOC: EMS 04:06 → 5S 11:22
PROVIDERS: ADMIT Hospitalist; ATTEND Hospitalist
PROC: 05HY33Z Insertion of Infusion Device into Upper Vein, Percutaneous Approach (ICD-10-PCS; principal; 2021-12-09)
DX: I11.0 Hypertensive heart disease with heart failure (principal); I50.43 Acute on chronic combined systolic (congestive) and diastolic (congestive) heart failure; J96.21 Acute and chronic respiratory failure with hypoxia; J44.1 Chronic obstructive pulmonary disease with (acute) exacerbation; E44.0 Moderate protein-calorie malnutrition; E87.1 Hypo-osmolality and hyponatremia; Q21.1 Atrial septal defect; L03.113 Cellulitis of right upper limb; I47.2 Ventricular tachycardia; Z68.42 Body mass index [BMI] 45.0-49.9, adult; I42.9 Cardiomyopathy, unspecified; I08.1 Rheumatic disorders of both mitral and tricuspid valves; Z20.822 Contact with and (suspected) exposure to COVID-19; E11.9 Type 2 diabetes mellitus without complications; E66.01 Morbid (severe) obesity due to excess calories; G47.33 Obstructive sleep apnea (adult) (pediatric); M79.7 Fibromyalgia; F41.9 Anxiety disorder, unspecified; F10.10 Alcohol abuse, uncomplicated; E05.90 Thyrotoxicosis, unspecified without thyrotoxic crisis or storm; G25.81 Restless legs syndrome; I48.0 Paroxysmal atrial fibrillation; Z79.01 Long term (current) use of anticoagulants; Z79.4 Long term (current) use of insulin; Z79.84 Long term (current) use of oral hypoglycemic drugs; Z79.899 Other long term (current) drug therapy; Z87.891 Personal history of nicotine dependence; Z99.81 Dependence on supplemental oxygen; Z85.820 Personal history of malignant melanoma of skin; Z88.7 Allergy status to serum and vaccine; Z90.49 Acquired absence of other specified parts of digestive tract
CPT/HCPCS: 36245; 36569; 71045; 71250; 76937; 80048; 80053; 80162; 81001; 82962; 83605; 83690; 83735; 83880; 84439; 84443; 84484; 85025; 87040; 87081; 87804; 93005; 93306; 94640; 97116; 97163; 97530; 99285; G0378; G0480; J0282; J0696; J1160; J1644; J1815; J1940; J2930; J3490; J7060; 36415-L1; 36415-TC; J7613; Z7610

== ENCOUNTER → 2021-12-22 | Outpatient (CLI) | payer MEDICARE, OTHER ==
[~2021-12-22] MED LIST changes: +CLIN300C58 PO; -CYCL-448 PO; +DIGO125T2 PO; +DILT30TA3 PO; +DILT60SR PO; -FLUT16H NASAL; -FURO20 PO; +FURO40 PO; -HYDR-4584 PO; -LOPE-232 PO; -LORA10TA7 PO; +METH-387 PO; +METO-558 PO; -METO25 PO; -NICO-803 TD; +PRED-554 PO; -PROM25SU10 PR; +TIOT4MIS2 IH
[2021-12-22 14:39] VITALS: BP 86/69
== END | disposition home or self-care (01) ==
LOC: SRCNTR 14:24
PROVIDERS: ATTEND Internal Medicine
DX: I08.1 Rheumatic disorders of both mitral and tricuspid valves (principal); I50.42 Chronic combined systolic (congestive) and diastolic (congestive) heart failure; J44.9 Chronic obstructive pulmonary disease, unspecified; E66.9 Obesity, unspecified; F10.10 Alcohol abuse, uncomplicated; E11.9 Type 2 diabetes mellitus without complications; F41.9 Anxiety disorder, unspecified; I48.0 Paroxysmal atrial fibrillation; Z87.891 Personal history of nicotine dependence
CPT/HCPCS: G0463; Z7500

== ENCOUNTER → 2022-01-05 | Outpatient (CLI) | payer MEDICARE, OTHER ==
[~2022-01-05] MED LIST changes: -DILT30TA3 PO
[2022-01-05 10:48] VITALS: BP 125/88
== END | disposition home or self-care (01) ==
LOC: SRCNTR 10:16
PROVIDERS: ATTEND Internal Medicine
DX: I08.1 Rheumatic disorders of both mitral and tricuspid valves (principal); I50.42 Chronic combined systolic (congestive) and diastolic (congestive) heart failure; J44.9 Chronic obstructive pulmonary disease, unspecified; E66.01 Morbid (severe) obesity due to excess calories; F10.10 Alcohol abuse, uncomplicated; E11.9 Type 2 diabetes mellitus without complications; F41.9 Anxiety disorder, unspecified; I48.0 Paroxysmal atrial fibrillation; Q21.1 Atrial septal defect
CPT/HCPCS: G0463

== ENCOUNTER → 2022-02-02 | Outpatient (CLI) | payer MEDICARE, OTHER ==
[2022-02-02 15:24] VITALS: BP 100/61
== END | disposition home or self-care (01) ==
LOC: SRCNTR 15:06
PROVIDERS: ATTEND Internal Medicine
DX: I08.1 Rheumatic disorders of both mitral and tricuspid valves (principal); I50.42 Chronic combined systolic (congestive) and diastolic (congestive) heart failure; J44.9 Chronic obstructive pulmonary disease, unspecified; E66.01 Morbid (severe) obesity due to excess calories; E11.9 Type 2 diabetes mellitus without complications; F41.9 Anxiety disorder, unspecified; I48.0 Paroxysmal atrial fibrillation; F10.10 Alcohol abuse, uncomplicated; R06.00 Dyspnea, unspecified; Z87.891 Personal history of nicotine dependence
CPT/HCPCS: G0463

== ENCOUNTER → 2022-04-06 | Outpatient (CLI) | payer MEDICARE, OTHER ==
[~2022-04-06] MED LIST changes: +MIRT-149 PO; -MIRT30 PO
[2022-04-06 14:43] VITALS: BP 98/63
[2022-04-06 15:05] VITALS: BP 98/56
== END | disposition home or self-care (01) ==
LOC: SRCNTR 14:29
PROVIDERS: ATTEND Internal Medicine
DX: I08.1 Rheumatic disorders of both mitral and tricuspid valves (principal); I50.9 Heart failure, unspecified; J44.9 Chronic obstructive pulmonary disease, unspecified; E66.01 Morbid (severe) obesity due to excess calories; F10.10 Alcohol abuse, uncomplicated; E11.9 Type 2 diabetes mellitus without complications; F41.9 Anxiety disorder, unspecified; Q21.12 Patent foramen ovale; I48.0 Paroxysmal atrial fibrillation; Z87.891 Personal history of nicotine dependence
CPT/HCPCS: G0463

== ENCOUNTER → 2022-06-08 | Outpatient (CLI) | payer MEDICARE, OTHER ==
[~2022-06-08] MED LIST changes: -CLIN300C58 PO; -DILT60SR PO; -PRED-554 PO
[2022-06-08 14:27] VITALS: BP 89/50
== END | disposition home or self-care (01) ==
LOC: SRCNTR 14:11
PROVIDERS: ATTEND Internal Medicine
DX: I48.0 Paroxysmal atrial fibrillation (principal); I50.40 Unspecified combined systolic (congestive) and diastolic (congestive) heart failure; J44.9 Chronic obstructive pulmonary disease, unspecified; E66.01 Morbid (severe) obesity due to excess calories; Q21.12 Patent foramen ovale; F10.10 Alcohol abuse, uncomplicated; E11.9 Type 2 diabetes mellitus without complications; F41.9 Anxiety disorder, unspecified; E03.9 Hypothyroidism, unspecified; Z87.891 Personal history of nicotine dependence
CPT/HCPCS: G0463; Z7500

== ENCOUNTER → 2022-06-30 | Outpatient (CLI) | payer MEDICARE, OTHER ==
[~2022-06-30] MED LIST changes: -LISI-892 PO; -MONT-35 PO
== END | disposition home or self-care (01) ==
LOC: RADPV 14:55
PROVIDERS: ATTEND Internal Medicine
DX: I08.3 Combined rheumatic disorders of mitral, aortic and tricuspid valves (principal); I50.20 Unspecified systolic (congestive) heart failure
CPT/HCPCS: 93306

== ENCOUNTER → 2022-08-03 | Outpatient (CLI) | payer MEDICARE, OTHER ==
[~2022-08-03] MED LIST changes: +ALBU18HF12 IH; -ALBU8HFA IH; +DILT30TA3 PO; +HYDR-4584 PO; +LORTAB PO; +TRAM-559 PO
[2022-08-03 15:00] VITALS: BP 74/46
== END | disposition home or self-care (01) ==
LOC: SRCNTR 14:43
PROVIDERS: ATTEND Internal Medicine
DX: Z09 Encounter for follow-up examination after completed treatment for conditions other than malignant neoplasm (principal); I08.1 Rheumatic disorders of both mitral and tricuspid valves; E11.9 Type 2 diabetes mellitus without complications; I50.42 Chronic combined systolic (congestive) and diastolic (congestive) heart failure; J44.9 Chronic obstructive pulmonary disease, unspecified; Q21.12 Patent foramen ovale; E66.01 Morbid (severe) obesity due to excess calories; F10.10 Alcohol abuse, uncomplicated; I48.0 Paroxysmal atrial fibrillation; E03.9 Hypothyroidism, unspecified; Z87.891 Personal history of nicotine dependence
CPT/HCPCS: G0463; Z7500

== ENCOUNTER → 2022-09-28 | Outpatient (CLI) | payer MEDICARE, OTHER ==
[~2022-09-28] MED LIST changes: -BUDE10.7 IH; +FLEC50 PO; +FURO20 PO; -FURO40 PO; +IBUP-1493 PO; -METO-558 PO
[2022-09-28 14:55] VITALS: BP 99/55
== END | disposition home or self-care (01) ==
LOC: SRCNTR 14:40
PROVIDERS: ATTEND Internal Medicine
DX: I08.1 Rheumatic disorders of both mitral and tricuspid valves (principal); Z09 Encounter for follow-up examination after completed treatment for conditions other than malignant neoplasm; I50.40 Unspecified combined systolic (congestive) and diastolic (congestive) heart failure; J44.9 Chronic obstructive pulmonary disease, unspecified; E11.9 Type 2 diabetes mellitus without complications; F41.9 Anxiety disorder, unspecified; I48.0 Paroxysmal atrial fibrillation; E03.9 Hypothyroidism, unspecified; E66.01 Morbid (severe) obesity due to excess calories; Q21.12 Patent foramen ovale; Z87.891 Personal history of nicotine dependence
CPT/HCPCS: G0463; Z7500

== ENCOUNTER → 2023-06-14 | Outpatient (CLI) | payer MEDICARE, OTHER ==
[~2023-06-14] MED LIST changes: +METO-325 PO; -TRAM-559 PO; +TRAM50TA5 PO
[2023-06-14 15:06] VITALS: BP 108/57; PULSE 105; RESP 17; TEMP 97.7; O2SAT 96
== END | disposition home or self-care (01) ==
LOC: SRCNTR 14:53
PROVIDERS: ATTEND Internal Medicine
DX: Z09 Encounter for follow-up examination after completed treatment for conditions other than malignant neoplasm (principal); I08.1 Rheumatic disorders of both mitral and tricuspid valves; J44.9 Chronic obstructive pulmonary disease, unspecified; I50.42 Chronic combined systolic (congestive) and diastolic (congestive) heart failure; E11.9 Type 2 diabetes mellitus without complications; F41.9 Anxiety disorder, unspecified; I48.0 Paroxysmal atrial fibrillation; E03.9 Hypothyroidism, unspecified; F10.10 Alcohol abuse, uncomplicated; Q21.12 Patent foramen ovale; E66.01 Morbid (severe) obesity due to excess calories; Z87.891 Personal history of nicotine dependence
CPT/HCPCS: G0463; Z7500